=== PATIENT | female | born 1935 | race Caucasian/White ===

== ENCOUNTER 2017-09-24 09:20 | Observation (INO) | payer OTHER ==
--- OUTSIDE RECORDS SUMMARY | 2017-09-24 09:27 | XMS REPORT ---
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 unspecified laterality, unspecified osteoarthritis type Problem Anxiety F41.9 Active Assessment Hypertension, unspecified type I10 Active Assessment Hypercholesterolemia E78.00 Active Problem Hypertension, unspecified type I10 Active Problem Hypercholesterolemia E78.00 Active Medications Medication Code Code Instructions Start End Status Dosage System Date Date Calcium + D + K [facility] 63037095450 750-500-40 Active 1 tablet MG-UNT-MCG with meals Orally Twice a day Mobic [facility] 77463911767 7.5 MG Orally Active 1 tablet Once a day Lisinopril [facility] 70150512400 20 mg Orally Active 1 tablet Twice daily Magnesium Oxide [facility] [address]-93 400 MG Orally Active 1 tablet Once a day (taking prn) Fish Oil [facility] [address]-40 1000 MG Orally Active 1 capsule Once a day (VERIFY DOSE NEXT VISIT; she is unsure of dose) Fosamax [facility] 47974091305 70 MG Orally Active 1 tablet Vitamin E [facility] 86017409211 200 UNIT Orally Active 1 capsule Once a day Metoprolol [facility] 36591430423 25 mg Orally Active 1 tablet Succinate ER Once a day Acidophilus [facility] 46177624684 - Orally Active not Probiotic Blend defined Results No Known Results Summary Purpose eClinicalWorks Submission
--- OUTSIDE RECORDS SUMMARY | 2017-09-24 09:28 | XMS REPORT ---
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 67036356911 400 MG Orally Active 1 tablet Once a day (taking prn) Metoprolol [facility] 69568274879 25 mg Orally Active 1 tablet Succinate ER Once a day Mobic [facility] 72242990823 7.5 MG Orally Active 1 tablet Once a day Acidophilus [facility] 44160099465 - Orally Active not Probiotic Blend defined Calcium + D + K [facility] 63087775009 750-500-40 Active 1 tablet MG-UNT-MCG with meals Orally Twice a day Fish Oil [facility] 05607165785 1000 MG Orally Active 1 capsule Once a day (VERIFY DOSE NEXT VISIT; she is unsure of dose) Lisinopril [facility] 50110355436 20 mg Orally Active 1 tablet Twice daily Fosamax [facility] 53163276502 70 MG Orally Active 1 tablet Vitamin E [facility] 43119334360 200 UNIT Orally Active 1 capsule Once a day Results No Known Results Summary Purpose eClinicalWorks Submission
--- OUTSIDE RECORDS SUMMARY | 2017-09-24 09:28 | XMS REPORT ---
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
[2017-09-24] MEDS ORDERED: NA CHLORIDE 0.9% 250 ML ONE (09:44)
[2017-09-24] MEDS ORDERED: METOPROLOL TARTRATE 5 MG/5 ML INJ IV ONE (09:44)
[2017-09-24] MEDS ORDERED: ONDANSETRON 4 MG/2 ML VIAL ONE (09:44)
[2017-09-24 10:03] LABS: Protime INR 0.93
[2017-09-24 10:06] LABS: Absolute Lymphocytes (CBC) 2.1 K/uL (0.7-4.9); Absolute Monocytes 0.9 K/uL (0.1-1.3); Absolute Neutrophil 2.5 K/uL (1.8-8.0); Basophils % 0.6 % (0-1.3); Eosinophils % 1.5 % (0-4.4); Lymphocytes % 37.9 % (15.3-44.8); MCH 30.4 pg (27.0-35.0); MCV 93.5 fL (80-100); MPV 7.5 fL (7.6-11.3); Monocytes % 15.1 % (3.3-12.3); RBC Red Blood Cell Count 4.38 M/uL (3.86-4.86)
[2017-09-24 10:21] LABS: Magnesium 2.1 mg/dL (1.8-2.4); Potassium 3.6 mmol/L (3.5-5.1)
[2017-09-24 10:23] LABS: Thyroid Stimulating Hormone 4.05 uIU/mL (0.36-3.74)
[2017-09-24] MEDS ORDERED: ASPIRIN 81 MG CHEWABLE TABLET ONE (10:50)
--- NOTE | 2017-09-24 10:56 | RAD REPORT ---
EXAM DESCRIPTION: [place] Single View09/24/2017 10:11 am CLINICAL HISTORY: Hypertension/palpitations COMPARISON: 2009 FINDINGS: The lungs appear clear of acute infiltrate. The heart is mildly enlarged Calcified granuloma is present within the right lung IMPRESSION: No acute abnormalities displayed
--- NOTE | 2017-09-24 11:00 | EDPHYS ---
Physician Documentation [facility] Name: Arelis Bowden Age: 82 yrs Sex: Female : 1935 Arrival Date: 09/24/2017 Time: 09:23 Bed 3 Private MD: Noreen Baker ED Physician Jarod Redman HPI: 09/24 10:42 This 82 yrs old Female presents to ER via Ambulatory with complaints of High rn Blood Pressure. 10:42 This 82 yrs old Female presents to ER via Ambulatory with complaints of High rn Blood Pressure, palpitations. 10:43 The patient presents with a history of heart racing. Context: The symptoms occur at rn rest. Onset: The symptoms/episode began/occurred this morning. Duration: The patient or guardian reports a single episode, that is still ongoing. Severity of symptoms: At their worst the symptoms were moderate in the emergency department the symptoms are unchanged. The patient has experienced similar episodes in the past. Reports no diagnosis of arrhythmia, has had this twice before but went away quickly, began at 0300, constant, no chest pain/sob. Took baby aspirin this AM.. Historical: - Allergies: 09:29 Codeine; hj 09:29 Sulfa (Sulfonamide Antibiotics); hj - Home Meds: 09:29 metoprolol tartrate 25 mg Oral tab 1 tab once daily [Active]; lisinopril 20 mg Oral tab hj 1 tab once daily [Active]; - PMHx: 09:29 Hypertension; hj - PSHx: 09:29 collapsed lung; hj - Immunization history:: Adult Immunizations up to date. - Social history:: Smoking status: Patient/guardian denies using tobacco, Patient/guardian denies using alcohol. - Ebola Screening: : Patient negative for fever greater than or equal to 101.5 degrees Fahrenheit, and additional compatible Ebola Virus Disease symptoms Patient denies exposure to infectious person Patient denies travel to an Ebola-affected area in the 21 days before illness onset. - Family history:: not pertinent. - Hospitalizations: : No recent hospitalization is reported. ROS: 10:43 Constitutional: Negative for fever, chills, and weight loss, Eyes: Negative for injury, rn pain, redness, and discharge, Neck: Negative for injury, pain, and swelling, Cardiovascular: Negative for chest pain, and edema, Respiratory: Negative for shortness of breath, cough, wheezing, and pleuritic chest pain, Abdomen/GI: Negative for abdominal pain, nausea, vomiting, diarrhea, and constipation, MS/Extremity: Negative for injury and deformity, Skin: Negative for injury, rash, and discoloration, Neuro: Negative for headache, weakness, numbness, tingling, and seizure. Exam: 10:43 Constitutional: This is a well developed, well nourished patient who is awake, alert, rn and in no acute distress. Head/Face: Normocephalic, atraumatic. Eyes: Pupils equal round and reactive to light, extra-ocular motions intact. Lids and lashes normal. Conjunctiva and sclera are non-icteric and not injected. Cornea within normal limits. Periorbital areas with no swelling, redness, or edema. Neck: Trachea midline, no thyromegaly or masses palpated, and no cervical lymphadenopathy. Supple, full range of motion without nuchal rigidity, or vertebral point tenderness. No Meningismus. Cardiovascular: tachycardic, irregular, no murmur Respiratory: Lungs have equal breath sounds bilaterally, clear to auscultation and percussion. No rales, rhonchi or wheezes noted. No increased work of breathing, no retractions or nasal flaring. Abdomen/GI: Soft, non-tender, with normal bowel sounds. No distension or tympany. No guarding or rebound. No evidence of tenderness throughout. MS/ Extremity: Pulses equal, no cyanosis. Neurovascular intact. Full, normal range of motion. Equal circumference. Neuro: Awake and alert, GCS 15, oriented to person, place, time, and situation. Cranial nerves II-XII grossly intact. Motor strength 5/5 in all extremities. Sensory grossly intact. Vital Signs: 09:30 BP 159 / 108; Pulse 144; Resp 18; Temp 98.1(O); Pulse Ox 95% on R/A; Weight 73.94 kg; hj Height 5 ft. 6 in. (167.64 cm); Pain 0/10; 09:40 Pulse 114; Resp 16 S; Pulse Ox 97% on R/A; aa5 09:46 BP 151 / 112; Pulse 94; Resp 16 S; Pulse Ox 96% on R/A; aa5 09:51 BP 156 / 98; Pulse 90; Resp 16 S; Pulse Ox 96% on R/A; aa5 10:23 BP 148 / 91; Pulse 80; Resp 14; Pulse Ox 97% on R/A; aa5 11:48 BP 160 / 95; Pulse 98; Resp 16 S; Pulse Ox 97% on R/A; Pain 0/10; aa5 12:15 BP 144 / 96; Pulse 94; Resp 17; Pulse Ox 97% on R/A; jb1 13:34 BP 127 / 78; Pulse 76; Resp 17; Pulse Ox 97% on R/A; jb1 13:36 Temp 98.4(O); jb1 09:30 Body Mass Index 26.31 (73.94 kg, 167.64 cm) hj MDM: 09:31 Patient medically screened. rn 10:43 Data reviewed: vital signs, nurses notes, lab test result(s), EKG, and as a result, I rn will admit patient. Counseling: I had a detailed discussion with the patient and/or guardian regarding: the historical points, exam findings, and any diagnostic results supporting the discharge/admit diagnosis, lab results, radiology results, the need for further work-up and treatment in the hospital. Response to treatment: the patient's symptoms have markedly improved after treatment, and as a result, I will admit patient. Admission orders: after a detailed discussion of the patient's condition and case, the admit orders are written by me. ED course: Pt with persistent Afib, heart rate improved, will admit for afib/rvr and cardiology consult. . 10:59 Differential diagnosis: arrythmia, dehydration, stress disorder. rn 09/24 09:38 Order name: Basic Metabolic Panel; Complete Time: 10:32 09/24 09:38 Order name: CBC with Diff; Complete Time: 10:32 09/24 09:38 Order name: Magnesium; Complete Time: 10:09/24 09:38 Order name: NT PRO-BNP; Complete Time: 10:32 09/24 09:38 Order name: PT-INR; Complete Time: 10:32 09/24 09:38 Order name: Ptt, Activated; Complete Time: 10:32 09/24 09:38 Order name: Troponin (emerg Dept Use Only); Complete Time: 10:09/24 09:38 Order name: XRAY Chest (1 view); Complete Time: 10:57 rn 09/24 09:38 Order name: TSH; Complete Time: 10:32 rn 09/24 09:38 Order name: T4 Free; Complete Time: 10:32 rn 09/24 11:40 Order name: Urine Dipstick--Ancillary (enter results); Complete Time: 11:47 ag 09/24 09:38 Order name: EKG; Complete Time: 09:38 rn 09/24 09:38 Order name: Cardiac monitoring; Complete Time: 09:39 rn 09/24 09:38 Order name: EKG - Nurse/Tech; Complete Time: 09:39 rn 09/24 09:38 Order name: IV Saline Lock; Complete Time: 09:39 rn 09/24 09:38 Order name: Labs collected and sent; Complete Time: 10:04 rn 09/24 09:38 Order name: O2 Per Protocol; Complete Time: 09:39 rn 09/24 09:38 Order name: O2 Sat Monitoring; Complete Time: 09:39 rn 09/24 11:47 Order name: Diet Heart Healthy; Complete Time: 11:48 ss Administered Medications: 09:42 Drug: Metoprolol 5 mg Route: IVP; Site: right antecubital; aa5 09:42 Drug: NS 0.9% 250 ml Route: IV; Rate: 1 bolus; Site: right antecubital; aa5 10:00 Follow up: IV Status: Completed infusion aa5 09:47 Drug: Metoprolol 5 mg Route: IVP; Site: right antecubital; aa5 09:52 Drug: Metoprolol 5 mg Route: IVP; Site: right antecubital; aa5 10:00 Follow up: Response: No adverse reaction; No adverse reaction.HR has decreased. aa5 10:00 Not Given (Physician Discretion): Metoprolol TARTRATE (Lopressor) 50 mg PO once aa5 10:03 Not Given (Patient Refused): Zofran 4 mg IVP once; over 2 minutes aa5 11:07 Not Given (Physician Discretion): Aspirin Chewable Tablet 324 mg PO once; 81 mg tablets ss x 4 11:08 Drug: Aspirin Chewable Tablet 162 mg Route: PO; ss 14:13 Follow up: Response: No adverse reaction ss Disposition: 09/24/17 10:59 Hospitalization ordered by Lionel Scott for Inpatient Admission. Preliminary diagnosis is Paroxysmal atrial fibrillation. - Bed requested for Telemetry/MedSurg (Inpatient). - Status is Inpatient Admission. ss - Condition is Stable. - Problem is new. - Symptoms have improved. UTI on Admission? No Signatures: Dispatcher [employer] EDMS Jarod Redman MD MD rn Calderon, Audri, RN RN aa5 Sharla Mancini RN RN Ladi Menezes Rob Christie RN RN hj Corrections: (The following items were deleted from the chart) 12:58 10:59 Hospitalization Ordered by Lionel Scott MD for Inpatient Admission. Preliminary ag diagnosis is Paroxysmal atrial fibrillation. Bed requested for Telemetry/MedSurg (Inpatient). Status is Inpatient Admission. Condition is Stable. Problem is new. Symptoms have improved. UTI on Admission? No. rn 14:14 12:58 09/24/2017 10:59 Hospitalization Ordered by Lionel Scott MD for Inpatient ss Admission. Preliminary diagnosis is Paroxysmal atrial fibrillation. Bed requested for Telemetry/MedSurg (Inpatient). Status is Inpatient Admission. Condition is Stable. Problem is new. Symptoms have improved. UTI on Admission? No. ag
--- NOTE | 2017-09-24 11:00 | ER ---
Nurse's Notes [facility] Name: Arelis Bowden Age: 82 yrs Sex: Female : 1935 Arrival Date: 09/24/2017 Time: 09:23 Bed 3 Private MD: Noreen Baker Diagnosis: Paroxysmal atrial fibrillation Presentation: 09/24 09:26 Presenting complaint: Patient states: i woke up about 3:30 am today, i could feel my hj heart fluttering, took aspirin, woke up BP was- 146/101; took my BP meds; i can still feel my heart is fast; reports weakness; denies chest pain, nausea and vomiting;. Transition of care: patient was not received from another setting of care. Onset of symptoms was September 24, 2017. Risk Assessment: Do you want to hurt yourself or someone else? Patient reports no desire to harm self or others. Initial Sepsis Screen: Does the patient meet any 2 criteria? No. Patient's initial sepsis screen is negative. Does the patient have a suspected source of infection? No. Patient's initial sepsis screen is negative. Care prior to arrival: None. 09:26 Method Of Arrival: Ambulatory 09:26 Acuity: DURGA 3 hj Triage Assessment: 09:30 General: Appears in no apparent distress. uncomfortable, Behavior is calm, cooperative, hj appropriate for age. Pain: Denies pain. Historical: - Allergies: 09:29 Codeine; hj 09:29 Sulfa (Sulfonamide Antibiotics); hj - Home Meds: 09:29 metoprolol tartrate 25 mg Oral tab 1 tab once daily [Active]; lisinopril 20 mg Oral tab hj 1 tab once daily [Active]; - PMHx: 09:29 Hypertension; hj - PSHx: 09:29 collapsed lung; hj - Immunization history:: Adult Immunizations up to date. - Social history:: Smoking status: Patient/guardian denies using tobacco, Patient/guardian denies using alcohol. - Ebola Screening: : Patient negative for fever greater than or equal to 101.5 degrees Fahrenheit, and additional compatible Ebola Virus Disease symptoms Patient denies exposure to infectious person Patient denies travel to an Ebola-affected area in the 21 days before illness onset. - Family history:: not pertinent. - Hospitalizations: : No recent hospitalization is reported. Screenin:30 Abuse screen: Denies threats or abuse. Denies injuries from another. Nutritional hj screening: No deficits noted. Tuberculosis screening: No symptoms or risk factors identified. Fall Risk None identified. Assessment: 09:35 General: Appears comfortable, Behavior is calm, cooperative. Pain: Denies pain. Neuro: aa5 Level of Consciousness is awake, alert, obeys commands, Oriented to person, place, time, situation. Cardiovascular: Reports palpitations, Heart tones S1 S2 present Rhythm is atrial fibrillation with rapid ventricular response. Respiratory: Airway is patent Respiratory effort is even, unlabored, Respiratory pattern is regular, symmetrical, Breath sounds are clear bilaterally. GI: Abdomen is flat, non-distended, Bowel sounds present X 4 quads. Abd is soft and non tender X 4 quads. Patient currently denies nausea, vomiting. : No signs and/or symptoms were reported regarding the genitourinary system. EENT: No signs and/or symptoms were reported regarding the EENT system. Derm: Skin is pink, warm \\T\\ dry. Musculoskeletal: Range of motion: intact in all extremities. 09:50 Reassessment: Pt reports taking 25 mg Metoprolol [employer] CARRIER ASSISTANT, pt was notified of need to aa5 administer additional 25 mg Metoprolol per MD, pt took her own tab of 25 mg Metoprolol at 0950. . 10:00 Reassessment: Patient and/or family updated on plan of care and expected duration. Pain aa5 level reassessed. Patient is alert, oriented x 3, equal unlabored respirations, skin warm/dry/pink. Patient denies pain at this time. Patient states feeling better. Pt reports palpitations have improved. Pt states "I can still feel my heart beating fast but not as bad" . 11:07 Reassessment: Pt reports taking ASA 81mg x 2 [employer] CARRIER ASSISTANT, notified. . ss 11:08 Reassessment: Patient and/or family updated on plan of care and expected duration. Pain aa5 level reassessed. Patient is alert, oriented x 3, equal unlabored respirations, skin warm/dry/pink. Patient denies pain at this time. 11:48 Reassessment: Patient and/or family updated on plan of care and expected duration. Pain aa5 level reassessed. Patient is alert, oriented x 3, equal unlabored respirations, skin warm/dry/pink. Patient denies pain at this time. Pt notified of wait time for room assignment . 12:53 Reassessment: awaiting room assignment to be given at this time. Pt eating diet tray. ss Call light within reach. 14:05 Reassessment: Report given to DAFNE Mcallister. Vital Signs: 09:30 BP 159 / 108; Pulse 144; Resp 18; Temp 98.1(O); Pulse Ox 95% on R/A; Weight 73.94 kg; hj Height 5 ft. 6 in. (167.64 cm); Pain 0/10; 09:40 Pulse 114; Resp 16 S; Pulse Ox 97% on R/A; aa5 09:46 BP 151 / 112; Pulse 94; Resp 16 S; Pulse Ox 96% on R/A; aa5 09:51 BP 156 / 98; Pulse 90; Resp 16 S; Pulse Ox 96% on R/A; aa5 10:23 BP 148 / 91; Pulse 80; Resp 14; Pulse Ox 97% on R/A; aa5 11:48 BP 160 / 95; Pulse 98; Resp 16 S; Pulse Ox 97% on R/A; Pain 0/10; aa5 12:15 BP 144 / 96; Pulse 94; Resp 17; Pulse Ox 97% on R/A; jb1 13:34 BP 127 / 78; Pulse 76; Resp 17; Pulse Ox 97% on R/A; jb1 13:36 Temp 98.4(O); jb1 09:30 Body Mass Index 26.31 (73.94 kg, 167.64 cm) hj ED Course: 09:23 Patient arrived in ED. mr 09:23 Noreen Baker MD is Private Physician. mr 09:28 Triage completed. hj 09:30 Arm band placed on left wrist. hj 09:30 Patient has correct armband on for positive identification. Placed in gown. Bed in low hj position. Call light in reach. Side rails up X 1. Adult w/ patient. 09:31 Jarod Redman MD is Attending Physician. rn 09:38 Ana Maria Meier RN is Primary Nurse. aa5 09:40 Inserted saline lock: 20 gauge in right antecubital area, using aseptic technique. aa5 Blood collected. IV inserted by Jonatan Ta corporate technical recruiter. 09:53 Initial lab(s) drawn, by me, sent to lab. EKG done, by assistive technology trainer. jb1 10:08 EKG done, by assistive technology trainer. reviewed by Jarod Redman MD. tc 10:10 X-ray completed. Portable x-ray completed in exam room. Patient tolerated procedure la2 well. 10:10 XRAY Chest (1 view) In Process Unspecified. EDMS 10:59 Lionel Scott MD is Hospitalizing Provider. rn 11:15 Urine collected: clean catch specimen, clear, zoltan colored. jb1 14:12 No provider procedures requiring assistance completed. Patient admitted, IV remains in ss place. Administered Medications: 09:42 Drug: Metoprolol 5 mg Route: IVP; Site: right antecubital; aa5 09:42 Drug: NS 0.9% 250 ml Route: IV; Rate: 1 bolus; Site: right antecubital; aa5 10:00 Follow up: IV Status: Completed infusion aa5 09:47 Drug: Metoprolol 5 mg Route: IVP; Site: right antecubital; aa5 09:52 Drug: Metoprolol 5 mg Route: IVP; Site: right antecubital; aa5 10:00 Follow up: Response: No adverse reaction; No adverse reaction.HR has decreased. aa5 10:00 Not Given (Physician Discretion): Metoprolol TARTRATE (Lopressor) 50 mg PO once aa5 10:03 Not Given (Patient Refused): Zofran 4 mg IVP once; over 2 minutes aa5 11:07 Not Given (Physician Discretion): Aspirin Chewable Tablet 324 mg PO once; 81 mg tablets ss x 4 11:08 Drug: Aspirin Chewable Tablet 162 mg Route: PO; ss 14:13 Follow up: Response: No adverse reaction ss Outcome: 10:59 Decision to Hospitalize by Provider. rn 14:12 Admitted to Tele accompanied by tech, family with patient, via wheelchair, room 419, on ss monitor, Report called to DAFNE Mcallister 14:12 Condition: improved 14:12 Discharge instructions given to patient, family, Instructed on the need for admit, Demonstrated understanding of instructions. 14:14 Patient left the ED. ss Signatures: Dispatcher [employer] EDMS Jonatan Ta jb1 Serena Mccoy Roman, MD MD rn Calderon, Audri, RN RN aa5 Sharla Mancini RN RN Salma Dexter, ticket agent EKG Ttc Rob Christie RN RN Franchesca Mcmillan la2 Corrections: (The following items were deleted from the chart) 09:32 09:30 BP 159 / 108; Pulse 135bpm; Resp 18bpm; Pulse Ox 95% RA; Temp 98.1F Oral; 73.94 hj kg; Height 5 ft. 6 in.; BMI: 26.3; Pain 0/10; hj 10:05 09:53 Inserted saline lock: 20 gauge in right antecubital area, using aseptic aa5 technique. Blood collected. jb1
[2017-09-24] MEDS ORDERED: MEPERIDINE HCL 25 MG/0.5 ML ONE (11:10)
[2017-09-24 11:44] LABS: Urine Blood TRACE (NEG); Urine Glucose NEGATIVE (NEG); Urine Protein NEGATIVE (NEG); Urine Specific Gravity 1.015 (1.005-1.030)
[2017-09-24] MEDS ORDERED: ONDANSETRON 4 MG/2 ML VIAL IV PRN (11:50)
[2017-09-24] MEDS ORDERED: ACETAMINOPHEN 500 MG TAB PO PRN (11:50)
[2017-09-24] MEDS ORDERED: METOPROLOL TARTRATE 5 MG/5 ML INJ IV PRN (11:50)
--- NOTE | 2017-09-24 12:07 | EKG ---
Test Date: 2017-09-24 Test Time: 09:43:15 Hand Stonecutter: JOSÉ MIGUEL MEASUREMENT RESULTS: Intervals: Rate: 116 ND: QRSD: 84 QT: 334 QTc: 464 [place]: P: ND: QRS: 31 T: 238 INTERPRETIVE STATEMENTS: Atrial fibrillation with rapid ventricular response ST depression, consider subendocardial injury Nonspecific T wave abnormality Abnormal ECG Compared to ECG 02/28/2010 05:51:03 ST (T wave) deviation now present Sinus rhythm no longer present Atrial premature complex(es) no longer present T-wave abnormality still present Electronically Signed On 09-24-17 12:07:00 CDT by Adan Ervin
[2017-09-24] MEDS ORDERED: ENOXAPARIN 80 MG/0.8 ML SQ ONE (15:30)
[2017-09-24 16:54] VITALS: BMI 26.3
[2017-09-24] MEDS: ENOXAPARIN 80 MG/0.8 ML SQ SCH (19:57)
[2017-09-24] MEDS: LISINOPRIL 20 MG TAB PO SCH (19:58)
--- NOTE | 2017-09-24 23:37 | EKG ---
Test Date: 2017-09-24 Test Time: 20:30:49 Blankmaker: NEGRITO Hussein MEASUREMENT RESULTS: Intervals: Rate: 65 MN: 224 QRSD: 96 QT: 418 QTc: 434 [place]: P: 66 MN: 224 QRS: 32 T: 34 INTERPRETIVE STATEMENTS: Sinus rhythm with 1st degree AV block Otherwise normal ECG Compared to ECG 09/24/2017 09:43:15 First degree AV block now present Atrial fibrillation no longer present ST (T wave) deviation no longer present T-wave abnormality no longer present Electronically Signed On 09-24-17 23:36:58 CDT by Adan Ervin
--- NOTE | 2017-09-25 02:04 | HP ---
Date of Admission: 09/24/2017 Primary Care Physician: Dr. Baker. Culinary Instructor: Dr. Ervin, Cardiology. Code Status: Full. No medical power of needle straightener or living will. Chief Complaint: Palpitations. History Of Present Illness: The patient is an 82-year-old female with past medical history of hypertension, who was in her usual state of health until day of admission when the patient woke up around 03:30 with feelings of palpitation. This occurred after she went to the bathroom. The patient took an aspirin and was able to fall back asleep in a recliner, woke up around 07:30 , found to have her blood pressure elevated and around 146/101 and again had the fluttering sensation. Denied any chest pain, diaphoresis, nausea, vomiting or shortness of breath. The patient took her metoprolol for her blood pressure and felt slightly better; however, the palpitations did not resolve. Therefore , the patient came into the ER for further evaluation. The patient states that she has had similar episodes of palpitation in the past approximately a year ago. The patient's vital signs initially showed somewhat elevated blood pressure 159/108, rate in the 140s. The patient was given IV metoprolol, which improved her rate to the 100s. Her workup revealed elevated BNP. TSH was high at 4.05. Otherwise, troponin was negative. No electrolyte abnormalities. The patient was then referred for admission for atrial fibrillation with RVR. When seen in the ER, she was awake, alert, oriented x3, not in any acute distress, stated that she feels significantly better. Past Medical History: Hypertension. Past Surgical History: None. Allergies: TO CODEINE AND SULFA. Medications: List reviewed. Family History: No history of premature coronary artery disease in the family. Review of Systems: An 11-point system reviewed, negative except as per HPI. Social History: The patient smoked in the remote past. Has not smoked for over 30 years or longer. No alcohol. No illicit drug use. The patient has good social support. Physical Examination: Vital Signs: Temperature 98.1, heart rate 144, blood pressure 159/108, respirations 18, O2 95% on room air. General: Awake, alert, oriented x3. Some mild distress. Elderly female. HEENT: Normocephalic, atraumatic. PERRLA. EOMI. Moist mucous membranes. Oropharynx is clear. Normal dentition. Conjunctiva anicteric. Neck: Supple. No JVD. Trachea midline. CV: S1, S2. Irregularly irregular. Peripheral pulses present. No murmurs. Gastrointestinal: Abdomen is soft, nontender, nondistended. Positive bowel sounds. No guarding or rigidity. Respiratory: Clear to auscultation bilaterally. No wheezing. No stridor. No use of accessory muscles. Extremities: No clubbing, cyanosis or edema. No calf tenderness. Neurologic: Cranial nerves 2 through 12 intact grossly. No focal neurological deficit. Speech is normal. Sensation intact to light touch. Skin: No rashes. Normal skin turgor. Psych: Mood is okay. Affect is full. Insight and judgment are good. Laboratory Data: WBC 5.6, H and H 13.3 and 41, platelets 224. INR 0.93. Sodium 140, potassium 3.6, chloride 105, CO2 28, BUN 18, creatinine 0.9, glucose 111, calcium 9.2, magnesium 2.1. Troponin 0.03. BNP 835. TSH 4.05, free T4 1.19. UA negative. Chest x-ray shows no acute abnormalities displayed, personally reviewed. EKG shows atrial fibrillation with RVR, rate of 116, ST depression, nonspecific T- wave abnormality. Assessment/plan: An 82-year-old female with, 1. New onset Atrial fibrillation with rapid ventricular response, unclear etiology, likely paroxysmal. The patient has had similar symptoms before. The patient on aspirin alone at home. We will anticoagulate with Lovenox. Cardiology consultation. We will obtain echocardiogram. 2. Essential hypertension, uncontrolled, likely secondary to above. We will resume home medications and monitor closely. 3. Gastrointestinal, deep venous thrombosis prophylaxis with PPI and Lovenox. /ZEB Voice ID: [id number] [facility]
[2017-09-25 03:54] LABS: Absolute Lymphocytes (CBC) 2.3 K/uL (0.7-4.9); Absolute Monocytes 0.9 K/uL (0.1-1.3); Absolute Neutrophil 2.3 K/uL (1.8-8.0); Basophils % 0.4 % (0-1.3); Eosinophils % 1.9 % (0-4.4); Hematocrit 33.5 % (36.0-45.0); Lymphocytes % 40.5 % (15.3-44.8); MCH 31.4 pg (27.0-35.0); MCV 93.4 fL (80-100); MPV 7.5 fL (7.6-11.3); Monocytes % 16.3 % (3.3-12.3); RBC Red Blood Cell Count 3.59 M/uL (3.86-4.86)
[2017-09-25 04:08] LABS: Albumin 3.3 g/dL (3.4-5.0); Bilirubin Total 0.4 mg/dL (0.2-1.0); Magnesium 2.2 mg/dL (1.8-2.4); Potassium 3.7 mmol/L (3.5-5.1); Protein, Total 6.6 g/dL (6.4-8.2)
--- NOTE | 2017-09-25 07:13 | ECHO ---
HEIGHT: 5 ft 6 in WEIGHT: 163 lb 0 oz DATE OF STUDY: 09/24/[address]: Lionel Scott MD 2-DIMENSIONAL: YES M.MODE: YES DOPPLER: YES COLOR FLOW: YES TDS: PORTABLE: DEFINITY: BUBBLE STUDY: DIAGNOSIS: ATRIAL FIBRILLATION CARDIAC HISTORY: CATHERIZATION: NO SURGERY: NO PROSTHETIC VALVE: NO PACEMAKER: NO MEASUREMENTS (cm) DIASTOLIC (NORMALS) SYSTOLIC (NORMALS) IVSd 1.1 (0.6-1.2) LA Diam 3.5 (1.9-4.0) LVEF 75% LVIDd 4.2 (3.5-5.7) LVIDs 2.4 (2.0-3.5) %FS 43% LVPWd 1.2 (0.6-1.2) Ao Diam 3.3 (2.0-3.7) 2 DIMENSIONAL ASSESSMENT: RIGHT ATRIUM: NORMAL LEFT ATRIUM: NORMAL RIGHT VENTRICLE: NORMAL LEFT VENTRICLE: NORMAL TRICUSPID VALVE: NORMAL MITRAL VALVE: NORMAL PULMONIC VALVE: NORMAL AORTIC VALVE: NORMAL PERICARDIAL EFFUSION: NONE AORTIC ROOT: NORMAL LEFT VENTRICULAR WALL MOTION: NORMAL DOPPLER/COLOR FLOW: MILD TRICUSPID REGURGITATION. NORMAL RIGHT VENTRICULAR SYSTOLIC PRESSURE. COMMENTS: NORMAL LEFT VENTRICULAR EJECTION FRACTION, OTHERWISE NORMAL 2-DIMENSIONAL ECHOCARDIOGRAM. MILD TRICUSPID REGURGITATION. SINUS RHTYHM. TECHNOLOGIST: PHUC BOONE
[2017-09-25 07:59] VITALS: BP 179/90; TEMP 97
[2017-09-25] MEDS: LISINOPRIL 20 MG TAB PO SCH (08:44)
[2017-09-25] MEDS: ENOXAPARIN 80 MG/0.8 ML SQ SCH (08:44)
[2017-09-25] MEDS ORDERED: LACTOBACILLUS/ACIDOPHILUS TAB PO SCH (09:00)
[2017-09-25] MEDS ORDERED: METOPROLOL XL 25 MG TAB PO SCH (09:00)
[2017-09-25] MEDS ORDERED: [UNRECOGNIZED DRUG - OTHER] PO SCH (09:00)
[2017-09-25 10:37] VITALS: O2SAT 97
--- NOTE | 2017-09-26 01:34 | DS ---
Date of Discharge: 09/25/2017 Consultants: Dr. Ervin and Dr. Oreilly with Cardiology. Admitting Diagnoses: 1.New onset atrial fibrillation. 2.Essential hypertension. Discharge Diagnoses: 1.New onset atrial fibrillation with rapid ventricular response, now back in sinus rhythm. 2.Essential hypertension. Hospital Course: The patient is an 82-year-old functional female who comes into the hospital with pa lpitations. The patient was found to have atrial fibrillation with RVR at a rate of 140. The patien t has never been diagnosed with Afib previously. She did state however that she has had previous epi sodes of palpitations and likely has paroxysmal atrial fibrillation. The patient does take aspirin a t home along with metoprolol. The patient was given IV Lopressor, her rate improved and she converte d back to sinus rhythm. Overall, her workup did not reveal any electrolyte abnormalities. Her TSH w as high at 4.05. The patient will need to follow up with PCP in a couple of weeks to initiate Synthr oid therapy and to monitor TSH in 6 to 8 weeks from that point. She will not be started on Synthroid while in the hospital setting, which may exacerbate her atrial fibrillation. The patient was seen b y residential program director, Dr. Oreilly. Echocardiogram was done, which showed normal ejection fraction 75%. Th e patient is doing better. Her palpitations resolved. She did not have any chest pain or shortness of breath. She was not on any supplemental oxygen. Her troponin level was negative. The patient wa s then cleared for discharge from Cardiology standpoint. The patient was sent home in a stable condi tion. Activity: As tolerated. Medications: As per medication reconciliation list. Followup: Follow up with PCP in 2 to 3 days. Follow up with residential program director, Dr. Oreilly in 2 weeks. Return to ER for worsening condition. The patient recommended to have stress test as an outpatient. Diet: Heart healthy. Activity: As tolerated. The patient was encouraged to start Eliquis; however, the patient refused, stating that she does not like to take medications that she is already 82 years old and she understands that she has a risk for stroke due to atrial fibrillation that is paroxysmal; however, she does not wish to take oral antico agulation at this time. She does take aspirin at home, which will be continued at 325 mg dose. The patient stated that she would decide on starting Eliquis or other newer agents after the stress test and further discussion with her family and residential program director. The patient understands the risk of stroke and is okay with waiting. The patient was then discharged home. Physical Examination: General: Awake, alert, oriented, no acute distress. CV: S1, S2. No murmurs. Regular rate and rhythm. Peripheral pulses present. Respiratory: Moving air well bilaterally. Abdomen: Soft, nontender, nondistended. Positive bowel sounds. Extremities: No clubbing, cyanosis, or edema. Neurologic: Nonfocal. SA/MODL Voice ID: [id number] Report ID: [id number]
--- NOTE | 2017-09-26 08:26 | CON ---
Date of Consultation: 09/25/2017 Reason For Consultation: Atrial fibrillation. History Of Present Illness: Ms. Bowden is an 82-year-old woman with history of hypertension only, ne karan had atrial fibrillation before, came into the hospital with palpitation, was found to have atrial fibrillation with rapid ventricular response. Received IV beta-blockers and digoxin in the emergenc y room and was placed on metoprolol p.o. and she converted to sinus rhythm. Denied any chest pain, n ausea, vomiting, diaphoresis, PND, orthopnea, pedal edema, or syncope. She cannot remember having at rial fibrillation in the past. This was not exertional. Denies excessive use of coffee or carbohydr ates. Denies alcohol use. Denies any previous cardiac history. Past Medical History: Hypertension. Medications: Include metoprolol and lisinopril. Review of Systems: Negative. Social History: Negative for tobacco, drugs and alcohol. Allergies: CODEINE AND SULFA. Family History: Negative for heart disease. Physical Examination: Vital Signs: Stable. She was afebrile. HEENT: Negative. Neck: Supple with no bruit. Chest: Clear to auscultation and percussion. Cardiac Exam: Revealed a regular rhythm and rate without any murmurs, gallops or rubs. Abdomen: Benign. Extremities: Revealed no clubbing, cyanosis, or edema. Diagnostic Data: Her EKG initially showed rapid atrial fibrillation. Chest x-ray was normal. BNP w as 835. TSH with normal T4. Impression And Plan: Paroxysmal atrial fibrillation, new onset that has resolved. I suggest increas ing the metoprolol dose when she goes home to 50 b.i.d. I would consider anticoagulation Xarelto and Eliquis. The patient about that. I think she needs to have outpatient stress test and I will make arrangements for that. , she can go home today. Echocardiogram is p ending and we will see what that shows. She may need to have a low Synthroid dose because of her edgardo vated TSH, but I will leave that up to Dr. Scott and her primary care physician. CRIS/ZEB Voice ID: [id number] Report ID: [id number]
== END 2017-09-25 11:45 | disposition home or self-care (01) ==
LOC: ER 09:20 → INTOOBSV 11:04 → ERHOLD 11:04 → 4TH 14:07
PROVIDERS: ADMIT Family Medicine; ATTEND Family Medicine
DX: I48.0 Paroxysmal atrial fibrillation (principal); I10 Essential (primary) hypertension; Z88.2 Allergy status to sulfonamides
CPT/HCPCS: 36415; 71045; 80048; 80053; 81003; 83735 ×2; 83880; 84439; 84443; 84484; 85025 ×2; 85610; 85730; 93005 ×2; 93306; 94760 ×3; 96361; 96374; 99285; G0378 ×2; J1650 ×2; 96365; 96375; J2175; J2405

== ENCOUNTER 2018-02-07 08:18 | Emergency (ER) | payer OTHER ==
--- OUTSIDE RECORDS SUMMARY | 2018-02-07 08:20 | XMS REPORT ---
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 Active unspecified laterality, unspecified osteoarthritis type Problem Anxiety F41.9 Active Problem Atrial fibrillation, unspecified I48.91 Active type Problem Hypertension, unspecified type I10 Active Problem Osteoporosis M81.0 Active Problem Hypercholesterolemia E78.00 Active Medications Medication Code Code Instructions Start End Status Dosage System Date Date Fish Oil [facility] [address]-24 1000 MG Orally Active 1 capsule Once a day (OTC) Lisinopril [facility] 24701229194 20 mg Orally Active 1 tablet Twice daily Vitamin C [facility] [address]31 Orally Once a Active 1 tablet day Vitamin E [facility] 81555282486 200 UNIT Orally Active 1 capsule Once a day Magnesium Oxide [facility] 42711035375 400 MG Orally Active 1 tablet Once a day (taking prn) Calcium + D + K [facility] 83701245693 750-500-40 Active 1 tablet MG-UNT-MCG with meals Orally Twice a day Fosamax [facility] 60949103052 70 MG Orally Active 1 tablet Mobic [facility] 83723689534 7.5 MG Orally Active 1 tablet Once a day Aspirin [facility] 78804259175 81 MG Orally Active 1 tablet Once daily (OTC) Acidophilus [facility] [address] - Orally Once Active 1 capsule Probiotic Blend daily (Probotics --OTC) Metoprolol [facility] 39558905862 25 mg Orally Active 1 tablet Succinate ER Once a day Results No Known Results Summary Purpose eClinicalWorks Submission
--- OUTSIDE RECORDS SUMMARY | 2018-02-07 08:20 | XMS REPORT ---
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 unspecified laterality, unspecified osteoarthritis type Problem Peripheral edema R60.9 Active Problem Hypercholesterolemia E78.00 Active Problem Hypertension, unspecified type I10 Active Problem Anxiety F41.9 Active Problem Osteoporosis M81.0 Active Medications Medication Code Code Instructions Start End Status Dosage System Date Date Vitamin C [facility] [address] Orally Once a Active 1 tablet day Magnesium Oxide [facility] 28513057891 400 MG Orally Active 1 tablet Once a day (taking prn) Fish Oil [facility] 80711335701 1000 MG Orally Active 1 capsule Once a day (OTC) Vitamin E [facility] 48132170807 200 UNIT Orally Active 1 capsule Once a day Calcium + D + K [facility] 22547070218 750-500-40 Active 1 tablet MG-UNT-MCG with meals Orally Twice a day Lisinopril [facility] 55186854515 20 mg Orally Inactive 1 tablet Twice daily Fosamax [facility] 04054061176 70 MG Orally Active 1 tablet Aspirin [facility] 57670391328 81 MG Orally Active 1 tablet Once daily (OTC) Mobic [facility] 64989327537 7.5 MG Orally Active 1 tablet Once a day Acidophilus [facility] 36719-397[address] - Orally Once Active 1 capsule Probiotic Blend daily (Probotics --OTC) Metoprolol [facility] 94353318052 50 MG Orally Active 1 tablet Succinate ER Once a day Results No Known Results Summary Purpose eClinicalWorks Submission
--- OUTSIDE RECORDS SUMMARY | 2018-02-07 08:20 | XMS REPORT ---
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 unspecified laterality, unspecified osteoarthritis type Problem Anxiety F41.9 Active Problem Atrial fibrillation, unspecified I48.91 Active type Problem Hypertension, unspecified type I10 Active Problem Osteoporosis M81.0 Active Problem Hypercholesterolemia E78.00 Active Medications Medication Code Code Instructions Start End Status Dosage System Date Date Acidophilus [facility] 45107847679 - Orally Active not Probiotic Blend defined Metoprolol [facility] 07757932685 25 mg Orally Active 1 tablet Succinate ER Once a day Fish Oil [facility] 06167266270 1000 MG Orally Active 1 capsule Once a day (VERIFY DOSE NEXT VISIT; she is unsure of dose) Fosamax [facility] 21095268977 70 MG Orally Active 1 tablet Mobic [facility] 45702555959 7.5 MG Orally Active 1 tablet Once a day Calcium + D + K [facility] 10773369906 750-500-40 Active 1 tablet MG-UNT-MCG with meals Orally Twice a day Magnesium Oxide [facility] 18035844542 400 MG Orally Active 1 tablet Once a day (taking prn) Lisinopril [facility] 90936690101 20 mg Orally Active 1 tablet Twice daily Vitamin E [place] 05994454304 200 UNIT Orally Active 1 capsule Once a day Results No Known Results Summary Purpose eClinicalWorks Submission
--- OUTSIDE RECORDS SUMMARY | 2018-02-07 08:20 | XMS REPORT ---
[...] Status Dosage System Date Date Magnesium Oxide [facility] 59615312745 400 MG Orally Active 1 tablet Once a day (taking prn) Metoprolol [facility] 92861009402 25 mg Orally Active 1 tablet Succinate ER Once a day Mobic [facility] 48227896014 7.5 MG Orally Active 1 tablet Once a day Acidophilus [facility] 60790378463 - Orally Active not Probiotic Blend defined Calcium + D + K [facility] 79534439082 750-500-40 Active 1 tablet MG-UNT-MCG with meals Orally Twice a day Fish Oil [facility] 32494474616 1000 MG Orally Active 1 capsule Once a day (VERIFY DOSE NEXT VISIT; she is unsure of dose) Lisinopril [facility] 07004561120 20 mg Orally Active 1 tablet Twice daily Fosamax [facility] 64612820606 70 MG Orally Active 1 tablet Vitamin E [facility] 73150664201 200 UNIT Orally Active 1 capsule Once a day Results No Known Results Summary Purpose eClinicalWorks Submission
--- OUTSIDE RECORDS SUMMARY | 2018-02-07 08:20 | XMS REPORT ---
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
--- OUTSIDE RECORDS SUMMARY | 2018-02-07 08:20 | XMS REPORT ---
[...] Date Date Calcium + D + K [facility] 20337250817 750-500-40 Active 1 tablet MG-UNT-MCG with meals Orally Twice a day Mobic [facility] 59833700661 7.5 MG Orally Active 1 tablet Once a day Lisinopril [facility] 71786514992 20 mg Orally Active 1 tablet Twice daily Magnesium Oxide [facility] [address]-66 400 MG Orally Active 1 tablet Once a day (taking prn) Fish Oil [facility] [address]-20 1000 MG Orally Active 1 capsule Once a day (VERIFY DOSE NEXT VISIT; she is unsure of dose) Fosamax [facility] 06555188843 70 MG Orally Active 1 tablet Vitamin E [facility] 09841000328 200 UNIT Orally Active 1 capsule Once a day Metoprolol [facility] 03883522548 25 mg Orally Active 1 tablet Succinate ER Once a day Acidophilus [facility] 22239984952 - Orally Active not Probiotic Blend defined Results No Known Results Summary Purpose eClinicalWorks Submission
[2018-02-07] MEDS ORDERED: METOPROLOL TARTRATE 5 MG/5 ML INJ IV ONE ×2 (08:59→11:28)
[2018-02-07 09:07] LABS: Absolute Lymphocytes (CBC) 1.8 K/uL (0.7-4.9); Absolute Monocytes 0.8 K/uL (0.1-1.3); Absolute Neutrophil 3.1 K/uL (1.8-8.0); Basophils % 0.7 % (0-1.3); Eosinophils % 1.4 % (0-4.4); Hematocrit 38.3 % (36.0-45.0); Lymphocytes % 31.4 % (15.3-44.8); MCH 31.1 pg (27.0-35.0); MCV 93.4 fL (80-100); MPV 7.8 fL (7.6-11.3); Monocytes % 13.4 % (3.3-12.3)
[2018-02-07 09:10] LABS: Protime INR 0.98
--- NOTE | 2018-02-07 09:28 | RAD REPORT ---
EXAM DESCRIPTION: CT - Ct Stroke Brain Wo Cont - 02/07/2018 9:04 am CLINICAL HISTORY: Dizziness, acute onset neurologic symptoms, weakness CLINICAL HISTORY: None. TECHNIQUE: Axial 5 millimeter thick images of the head were obtained without IV contrast. All CT scans are performed using dose optimization technique as appropriate and may include automated exposure control or mA/KV adjustment according to patient size. FINDINGS: No intracranial hemorrhage, mass, or cerebral edema. No acute infarction identifiable. Mod erate severity atrophy and chronic ischemic change present. 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 There are old infarction changes in each thalamus. Ventricles are in proportion to volume loss. Visualized portions of the mastoid air cells, paranasal sinuses, and orbits are unremarkable. Findings telephoned to referring physician 9:21 a.m.. IMPRESSION: No CT evidence of acute intracranial process. Prominent atrophy, chronic ischemic change and old infarction. Chronic ischemic change can mask nonhe morrhagic acute CVA.
--- NOTE | 2018-02-07 09:32 | RAD REPORT ---
EXAM DESCRIPTION: RAD - Chest Single View - 02/07/2018 9:11 am CLINICAL HISTORY: Dizziness, confusion COMPARISON: September 24 TECHNIQUE: AP portable chest image was obtained 0857 hours . FINDINGS: Chronic interstitial lung disease is evident. Right lung base markings are not clearly dif ferent from comparison. Retrocardiac left base assessment is limited. Findings are not substantially different from the comparison study. Heart size is upper normal and stable. No vascular engorgement. Patient has numerous mediastinal and hilar calcifications as well as a right lung field granuloma. No measurable pleural effusion and no pneumothorax. No acute bony abnormality seen. No acute aortic fin dings suspected. IMPRESSION: No acute cardiopulmonary process. Patient has chronic interstitial lung disease and retrocardiac left base assessment is limited. Chest findings are not clearly different from September.
[2018-02-07 10:01] LABS: Potassium 3.7 mmol/L (3.5-5.1)
[2018-02-07] MEDS ORDERED: ALTEPLASE 100 ML IV ONE (11:08)
[2018-02-07] MEDS ORDERED: ASPIRIN 81 MG CHEWABLE TABLET ONE (11:08)
--- NOTE | 2018-02-07 11:09 | ER ---
Nurse's Notes [facility] Name: Arelis Bowden Age: 82 yrs Sex: Female : 1935 Arrival Date: 02/07/2018 Time: 08:21 Bed 4 Private MD: Noreen Baker Diagnosis: CVA - Non-hemorhagic Presentation: 02/07 08:31 Presenting complaint: Patient states: got up this morning, started moving around, iw brushed her teeth, combed hair, then got very dizzy, and was confused, could not remember how to unlock the door, made an unintentional phone call to her daughter in [place], BP was high at home 170/110, pt states she now has blurry vision in right eye since about 0750. 08:35 Method Of Arrival: Wheelchair iw 08:43 Note pt denies weakness, states dizziness has mostly resolved, just feels like her mind iw isn't quite right, NIHSS=[address] Han. 08:43 No acute neurological deficit is noted. Pre-hospital glucose is not applicable to this iw patient. 08:46 Initial Sepsis Screen: Does the patient meet any 2 criteria? No. Patient's initial sv sepsis screen is negative. Does the patient have a suspected source of infection? No. Patient's initial sepsis screen is negative. 08:47 Transition of care: patient was not received from another setting of care. Onset of iw symptoms was February 07, 2018. Risk Assessment: Do you want to hurt yourself or someone else? Patient reports no desire to harm self or others. Care prior to arrival: None. 08:47 Acuity: DURGA 2 iw Triage Assessment: 08:31 Neuro: Reports dizziness. tw2 08:43 The onset of the patients symptoms was February 07, 2018 at 07:50. General: Appears in sv no apparent distress. comfortable, well developed, Behavior is calm, cooperative, appropriate for age. Pain: Denies pain. EENT: No signs and/or symptoms were reported regarding the EENT system. Denies blurred vision difficulty swallowing. Neuro: Level of Consciousness is awake, alert, obeys commands, Oriented to person, place, time, situation, Corporate Communications Intern are equal bilaterally Moves all extremities. Full function Speech is normal, Facial symmetry appears normal, Facial symmetry: tongue is midline, Pupils are PERRLA, Denies blurred vision dizziness, difficulty swallowing, numbness headache photophobia diplopia. Respiratory: Airway is patent Respiratory effort is even, unlabored, Respiratory pattern is regular, symmetrical. Derm: Skin is pink, warm \T\ dry. Musculoskeletal: No signs and/or symptoms reported regarding the musculoskeletal system. Stroke Activation: Symtpom onset >3 hours and < 6 hours Physician: Stroke Attending; Name: ; Notified At: ; Arrived At: Physician: Chief Stroke Resident; Name: ; Notified At: ; Arrived At: Physician: Stroke Resident; Name: ; Notified At: ; Arrived At: Physician: ED Attending; Name: ; Notified At: ; Arrived At: Physician: ED Resident; Name: ; Notified At: ; Arrived At: 11:51 1050 pts condition changed, see nurses notes tw2 Historical: - Allergies: 08:47 Codeine; tw2 08:47 Sulfa (Sulfonamide Antibiotics); tw2 - Home Meds: 08:55 metoprolol succinate 50 mg oral Tb24 1 tab once daily [Active]; sv - PMHx: 08:47 Hypertension; tw2 - PSHx: 08:47 collapsed lung; tw2 - Immunization history:: Adult Immunizations up to date, Adult Immunizations. - Social history:: Smoking status: Patient/guardian denies using tobacco, Smoking status: . - Ebola Screening: : No symptoms or risks identified at this time Patient denies travel to an Ebola-affected area in the 21 days before illness onset. Screenin:45 Abuse screen: Denies threats or abuse. Denies injuries from another. Nutritional sv screening: No deficits noted. Tuberculosis screening: No symptoms or risk factors identified. Fall Risk None identified. 08:47 Patient has been NPO before screening. The patient is alert, able to follow commands. tw2 The patient does not exhibit slurred or garbled speech The patient is not exhibiting difficulty speaking. The patient does not exhibit difficulty understanding words. The patient is able to swallow own secretions with no drooling or need for suction. Patient tolerated one teaspoon of water. No drooling, immediate coughing, gurgling, or clearing of the throat was noted. The patient tolerated 90mL of water. No drooling, immediate coughing, gurgling, or clearing of the throat was noted. The patient passed the bedside swallow screening. Oral medications may be given as ordered. Contact Physician for further diet orders. Provider notified of bedside swallow screening results: Oj Han MD. Assessment: 08:43 General: Appears in no apparent distress. comfortable, well developed, Behavior is sv calm, cooperative, appropriate for age. Pain: Denies pain. Neuro: Level of Consciousness is awake, alert, obeys commands, Oriented to person, place, time, situation, Moves all extremities. Full function Speech is normal, Facial symmetry appears normal, Facial symmetry: tongue is midline. Respiratory: Airway is patent Respiratory effort is even, unlabored, Respiratory pattern is regular, symmetrical. Derm: Skin is normal. 08:45 Patient has been NPO before screening. The patient is alert, and able to follow sv commands. The patient does not exhibit slurred or garbled speech. The patient is not exhibiting difficulty speaking. The patient does not exhibit difficulty understanding words. The patient is able to swallow own secretions with no drooling or need for suction. Patient tolerated one teaspoon of water. No drooling, immediate coughing, gurgling, or clearing of the throat was noted. The patient tolerated 90mL of water. No drooling, immediate coughing, gurgling, or clearing of the throat was noted. The patient passed the bedside swallow screening. Oral medications may be given as ordered. Contact Physician for further diet orders. Provider notified of bedside swallow screening results: Oj Han MD. 09:54 Reassessment: Patient appears in no apparent distress at this time. No changes from tw2 previously documented assessment. Patient and/or family updated on plan of care and expected duration. Pain level reassessed. Patient is alert, oriented x 3, equal unlabored respirations, skin warm/dry/pink. 10:50 T-PA (Activase) Screening: Indications: Treatment will start within 4.5 hours onset of tw2 symptoms: Yes. Consent for thrombolytic therapy: Yes. Reassessment: Per Dr. Han pts experiencing changes in right visual field, decision made to tPA, pt consented and tPA administered per protocol. 11:00 Reassessment: Patient appears in no apparent distress at this time. No changes from tw2 previously documented assessment. Patient and/or family updated on plan of care and expected duration. Pain level reassessed. Patient is alert, oriented x 3, equal unlabored respirations, skin warm/dry/pink. 11:05 Reassessment: SEE IV TPA VITAL \T\ NEUROLOGICAL FLOWSHEET IN PTS CHART. tw2 12:11 Reassessment: Patient appears in no apparent distress at this time. No changes from tw2 previously documented assessment. Patient and/or family updated on plan of care and expected duration. Pain level reassessed. Patient is alert, oriented x 3, equal unlabored respirations, skin warm/dry/pink. Vital Signs: 08:48 BP 209 / 106; Pulse 79; Resp 16; Temp 97.1(TE); Pulse Ox 97% on R/A; Pain 0/10; iw 08:57 BP 186 / 97; Pulse 63 MON; Resp 15; Pulse Ox 95% ; sv 08:59 Temp 98.7(O); Pain 0/10; tw2 09:54 BP 174 / 87; Pulse 61; Resp 11; Pulse Ox 97% on R/A; tw2 11:05 BP 191 / 100; Pulse 71; Resp 18; Pulse Ox 99% on R/A; tw2 11:10 Weight 70.08 kg (M); iw 11:17 BP 191 / 100; Pulse 64; Resp 13; Pulse Ox 97% on R/A; mh5 11:35 BP 175 / 81; Pulse 67; Resp 18; Pulse Ox 99% on R/A; tw2 08:57 Sinus Rhythm sv NIH Stroke Scale Scores: 08:43 NIHSS Score: 0 sv 08:48 NIHSS Score: 0 kdr 10:50 NIHSS Score: 2 kdr 10:51 NIHSS Score: 2 tw2 ED Course: 08:21 Patient arrived in ED. mr 08:22 Noreen Baker MD is Private Physician. mr 08:30 Oj Han MD is Attending Physician. kdr 08:38 Juana Schrader, DAFNE is Primary Nurse. sv 08:40 Patient has correct armband on for positive identification. Bed in low position. Call light in reach. Side rails up X2. Adult w/ patient. travel professional on. Pulse ox on. NIBP on. Door closed. Warm blanket given. Head of bed elevated. 08:40 Arm band placed on. sv 08:43 Initial lab(s) drawn, by me, sent to lab. Inserted saline lock: 20 gauge in right sv wrist, using aseptic technique. Blood collected. Flushed right with 5 ml normal saline. 08:48 Triage completed. iw 08:53 EKG done, by ED staff, reviewed by Oj Han MD. mh5 08:54 Awaiting lab results, Awaiting radiology results. sv 08:[address] via stretcher. sv 09:03 CT Stroke Brain w/o Contrast In Process Unspecified. EDMS 09:10 Stroke CXR 1 View In Process Unspecified. EDMS 09:12 Patient moved back from radiology. sv 11:16 Inserted saline lock: 20 gauge in left antecubital area, using aseptic technique. mh5 11:46 \T\[id number] initiated transfer with Jolanta at the transfer center/ \T\[address]Bershad schaefer with Dr. Han for patient transfer consultation/ \T\[id number] administrative approval given by Jolanta Womack report to be called to [phone]. 12:11 No provider procedures requiring assistance completed. Patient transferred, IV remains tw2 in place. Administered Medications: 08:51 Drug: Lopressor 2.5 mg {Note: HR 67.} Route: IVP; Site: right wrist; tw2 09:10 Follow up: Response: No adverse reaction; Blood pressure is lowered tw2 09:12 Follow up: Response: No adverse reaction sv 11:00 Drug: Aspirin Chewable Tablet 324 mg Route: PO; tw2 11:41 Follow up: Response: No adverse reaction tw2 11:42 Follow up: Response: No adverse reaction tw2 11:05 Drug: Alteplase (Bolus for Stroke) - Activase 0.09 mg/kg {Co-Signature: mattie Buck RN).} Route: IV Thrombolytics; Infused Over: 1 mins; 11:06 Follow up: Response: No adverse reaction tw2 11:05 Drug: Alteplase {Co-Signature: mattie Buck RN).} Route: IV Thrombolytics; Rate: tw2 calculated rate; 12:05 Follow up: Response: No adverse reaction tw2 11:18 Drug: Lopressor 2.5 mg Route: IVP; Site: left forearm; tw2 11:45 Follow up: Response: No adverse reaction; Blood pressure is unchanged tw2 11:32 Drug: Cardene 5 mg/hr Route: IV; Rate: calculated rate; Site: left femoral; tw2 Point of Care Testing: Blood Glucose: 08:43 Blood Glucose: 117 mg/dL; iw Ranges: Outcome: 11:08 ER care complete, transfer ordered by . kdr 11:45 Transferred Note: report given to DAFNE Lopez at [facility] 12:11 Patient left the ED. iw 12:11 Transferred by ground EMS to [facility]. tw2 12:11 Condition: stable 12:11 Instructed on the need for transfer. NIH Stroke Scale - NIH Stroke Score Date: 02/07/2018 Time: 08:43 Total Score = 0 1a. Level of Consciousness (LOC) - 0(Alert) 1b. Level of Consciousness (LOC) (Year \T\ Age) - 0(Both) 1c. LOC Commands (Open \T\ Closes Eyes/Tire Fabric Impregnating Range Tender) - 0(Both) 2. Best Gaze (Lateral Gaze Paresis) - 0(Normal) 3. Visual Field Loss - 0(No visual loss) 4. Facial Palsy - 0(Normal) 5a. Left Arm: Motor (10-second hold) - 0(No drift) 5b. Right Arm: Motor (10-second hold) - 0(No drift) 6a. Left Leg: Motor (5-second hold - always test supine) - 0(No drift) 6b. Right Leg: Motor (5-second hold - always test supine) - 0(No drift) 7. Limb Ataxia (finger/nose \T\ heel/chen - test with eyes open) - 0(Absent) 8. Sensory Loss (pinprick arms/legs/face) - 0(Normal) 9. Best Language: Aphasia (description/naming/reading) - 0(No aphasia) 10. Dysarthria (speech clarity - read or repeat words) - 0(Normal) 11. Extinction and Inattention (visual/tactile/auditory/spatial/personal) - 0(No abnormality) Initials: NIH Stroke Scale - NIH Stroke Score Date: 02/07/2018 Time: 08:48 Total Score = 0 1a. Level of Consciousness (LOC) - 0(Alert) 1b. Level of Consciousness (LOC) (Year \T\ Age) - 0(Both) 1c. LOC Commands (Open \T\ Closes Eyes/Tire [employer] Impregnating Range Tender) - 0(Both) 2. Best Gaze (Lateral Gaze Paresis) - 0(Normal) 3. Visual Field Loss - 0(No visual loss) 4. Facial Palsy - 0(Normal) 5a. Left Arm: Motor (10-second hold) - 0(No drift) 5b. Right Arm: Motor (10-second hold) - 0(No drift) 6a. Left Leg: Motor (5-second hold - always test supine) - 0(No drift) 6b. Right Leg: Motor (5-second hold - always test supine) - 0(No drift) 7. Limb Ataxia (finger/nose \T\ heel/chen - test with eyes open) - 0(Absent) 8. Sensory Loss (pinprick arms/legs/face) - 0(Normal) 9. Best Language: Aphasia (description/naming/reading) - 0(No aphasia) 10. Dysarthria (speech clarity - read or repeat words) - 0(Normal) 11. Extinction and Inattention (visual/tactile/auditory/spatial/personal) - 0(No abnormality) Initials: kdr NIH Stroke Scale - NIH Stroke Score Date: 02/07/2018 Time: 10:50 Total Score = 2 1a. Level of Consciousness (LOC) - 0(Alert) 1b. Level of Consciousness (LOC) (Year \T\ Age) - 0(Both) 1c. LOC Commands (Open \T\ Closes Eyes/Tire Fab[employer] Impregnating Range Tender) - 0(Both) 2. Best Gaze (Lateral Gaze Paresis) - 0(Normal) 3. Visual Field Loss - 2(Complete hemianopia) 4. Facial Palsy - 0(Normal) 5a. Left Arm: Motor (10-second hold) - 0(No drift) 5b. Right Arm: Motor (10-second hold) - 0(No drift) 6a. Left Leg: Motor (5-second hold - always test supine) - 0(No drift) 6b. Right Leg: Motor (5-second hold - always test supine) - 0(No drift) 7. Limb Ataxia (finger/nose \T\ heel/chen - test with eyes open) - 0(Absent) 8. Sensory Loss (pinprick arms/legs/face) - 0(Normal) 9. Best Language: Aphasia (description/naming/reading) - 0(No aphasia) 10. Dysarthria (speech clarity - read or repeat words) - 0(Normal) 11. Extinction and Inattention (visual/tactile/auditory/spatial/personal) - 0(No abnormality) Initials: [facility] NIH Stroke Scale - NIH Stroke Score Date: 02/07/2018 Time: 10:51 Total Score = 2 1a. Level of Consciousness (LOC) - 0(Alert) 1b. Level of Consciousness (LOC) (Year \T\ Age) - 0(Both) 1c. LOC Commands (Open \T\ Closes Eyes/Tire Fab[employer] Impregnating Range Tender) - 0(Both) 2. Best Gaze (Lateral Gaze Paresis) - 0(Normal) 3. Visual Field Loss - 2(Complete hemianopia) 4. Facial Palsy - 0(Normal) 5a. Left Arm: Motor (10-second hold) - 0(No drift) 5b. Right Arm: Motor (10-second hold) - 0(No drift) 6a. Left Leg: Motor (5-second hold - always test supine) - 0(No drift) 6b. Right Leg: Motor (5-second hold - always test supine) - 0(No drift) 7. Limb Ataxia (finger/nose \T\ heel/chen - test with eyes open) - 0(Absent) 8. Sensory Loss (pinprick arms/legs/face) - 0(Normal) 9. Best Language: Aphasia (description/naming/reading) - 0(No aphasia) 10. Dysarthria (speech clarity - read or repeat words) - 0(Normal) 11. Extinction and Inattention (visual/tactile/auditory/spatial/personal) - 0(No abnormality) Initials: tw2 Signatures: Dispatcher [employer] Juana Juárez RN RN Oj Han MD MD kdr Rivera, Mary mr Williams, Irene, RN RN iw Wise, Tara, RN RN 2 Serena Umanzor [facility] Reanna Art [facility] Latanya Spence RN iw Corrections: (The following items were deleted from the chart) 08:53 08:40 Inserted saline lock: 20 gauge in right wrist, using aseptic technique. sv Blood collected. Flushed right with 5 ml normal saline 08:53 08:40 Initial lab(s) drawn, by me, sent to lab. sv sv 08:55 08:47 Home Meds: lisinopril 20 mg Oral tab 1 tab once daily; tw2 sv 08:55 08:47 Home Meds: metoprolol tartrate 25 mg Oral tab 1 tab once daily; 08:59 08:50 Patient moved to [address]
--- NOTE | 2018-02-07 11:09 | EDPHYS ---
Physician Documentation [facility] Name: Arelis Bowden Age: 82 yrs Sex: Female : 1935 Arrival Date: 02/07/2018 Time: 08:21 Bed 4 Private MD: Noreen Baker ED Physician Oj Han HPI: 02/07 08:48 This 82 yrs old Female presents to ER via Wheelchair with complaints of kdr Dizziness, High Blood Pressure. 08:48 The patient presents with dizziness, generalized weakness, a sense of confusion. Onset: kdr The symptoms/episode began/occurred suddenly, just prior to arrival. Context: occurred at home, occurred while the patient was standing, just prior to the episode the patient experienced no apparent symptoms, The patient states that she had just been up for about 15 minutes when she began to get confused and dizzy. She had not had this before. Onset about 07:15. By the time of arrival, the patients s/s have resolved expect for subjective right facial paresthesia.. 08:55 Code stroke not called since her Stroke scale was "0" and all s/s have resolved except kdr for subjective right facial paresthesia . Historical: - Allergies: 08:47 Codeine; tw2 08:47 Sulfa (Sulfonamide Antibiotics); tw2 - Home Meds: 08:55 metoprolol succinate 50 mg oral Tb24 1 tab once daily [Active]; sv - PMHx: 08:47 Hypertension; tw2 - PSHx: 08:47 collapsed lung; tw2 - Immunization history:: Adult Immunizations up to date, Adult Immunizations. - Social history:: Smoking status: Patient/guardian denies using tobacco, Smoking status: . - Ebola Screening: : No symptoms or risks identified at this time Patient denies travel to an Ebola-affected area in the 21 days before illness onset. ROS: 09:25 Constitutional: Negative for fever, chills, and weight loss, Eyes: Negative for injury, kdr pain, redness, and discharge, ENT: Negative for injury, pain, and discharge, Neck: Negative for injury, pain, and swelling, Cardiovascular: Negative for chest pain, palpitations, and edema, Respiratory: Negative for shortness of breath, cough, wheezing, and pleuritic chest pain, Abdomen/GI: Negative for abdominal pain, nausea, vomiting, diarrhea, and constipation, Back: Negative for injury and pain, : Negative for injury, bleeding, discharge, and swelling, MS/Extremity: Negative for injury and deformity, Skin: Negative for injury, rash, and discoloration, Psych: Negative for depression, anxiety, suicide ideation, homicidal ideation, and hallucinations, Allergy/Immunology: Negative for hives, rash, and allergies, Endocrine: Negative for neck swelling, polydipsia, polyuria, polyphagia, and marked weight changes, Hematologic/Lymphatic: Negative for swollen nodes, abnormal bleeding, and unusual bruising. 09:25 Neuro: Positive for dizziness. Exam: 11:34 Constitutional: This is a well developed, well nourished patient who is awake, alert, kdr and in no acute distress. Head/Face: Normocephalic, atraumatic. Eyes: Pupils equal round and reactive to light, extra-ocular motions intact. Lids and lashes normal. Conjunctiva and sclera are non-icteric and not injected. Cornea within normal limits. Periorbital areas with no swelling, redness, or edema. ENT: Nares patent. No nasal discharge, no septal abnormalities noted. Tympanic membranes are normal and external auditory canals are clear. Oropharynx with no redness, swelling, or masses, exudates, or evidence of obstruction, uvula midline. Mucous membranes moist. Neck: Trachea midline, no thyromegaly or masses palpated, and no cervical lymphadenopathy. Supple, full range of motion without nuchal rigidity, or vertebral point tenderness. No Meningismus. Chest/axilla: Normal chest wall appearance and motion. Nontender with no deformity. No lesions are appreciated. Cardiovascular: Regular rate and rhythm with a normal S1 and S2. No gallops, murmurs, or rubs. Normal PMI, no JVD. No pulse deficits. Respiratory: Lungs have equal breath sounds bilaterally, clear to auscultation and percussion. No rales, rhonchi or wheezes noted. No increased work of breathing, no retractions or nasal flaring. Abdomen/GI: Soft, non-tender, with normal bowel sounds. No distension or tympany. No guarding or rebound. No evidence of tenderness throughout. Back: No spinal tenderness. No costovertebral tenderness. Full range of motion. Skin: Warm, dry with normal turgor. Normal color with no rashes, no lesions, and no evidence of cellulitis. MS/ Extremity: Pulses equal, no cyanosis. Neurovascular intact. Full, normal range of motion. Neuro: Awake and alert, GCS 15, oriented to person, place, time, and situation. Cranial nerves II-XII grossly intact. Motor strength 5/5 in all extremities. Sensory grossly intact. Cerebellar exam normal. Normal gait. Psych: Awake, alert, with orientation to person, place and time. Behavior, mood, and affect are within normal limits. Vital Signs: 08:48 BP 209 / 106; Pulse 79; Resp 16; Temp 97.1(TE); Pulse Ox 97% on R/A; Pain 0/10; iw 08:57 BP 186 / 97; Pulse 63 MON; Resp 15; Pulse Ox 95% ; sv 08:59 Temp 98.7(O); Pain 0/10; tw2 09:54 BP 174 / 87; Pulse 61; Resp 11; Pulse Ox 97% on R/A; tw2 11:05 BP 191 / 100; Pulse 71; Resp 18; Pulse Ox 99% on R/A; tw2 11:10 Weight 70.08 kg (M); iw 11:17 BP 191 / 100; Pulse 64; Resp 13; Pulse Ox 97% on R/A; mh5 11:35 BP 175 / 81; Pulse 67; Resp 18; Pulse Ox 99% on R/A; tw2 08:57 Sinus Rhythm sv NIH Stroke Scale Scores: 08:43 NIHSS Score: 0 sv 08:48 NIHSS Score: 0 kdr 10:50 NIHSS Score: 2 kdr 10:51 NIHSS Score: 2 tw2 MDM: 09:24 Differential diagnosis: cardiac arrhythmia, CVA, generalized weakness, TIA, vertigo. kdr Data reviewed: vital signs, nurses notes. Counseling: I had a detailed discussion with the patient and/or guardian regarding: the historical points, exam findings, and any diagnostic results supporting the discharge/admit diagnosis, lab results, radiology results. 09:24 ED course: CT Head negative for any acute stroke per Dr. Arnold. kdr 11:00 ED course: On re-evaluation, patient c/o discomfort in left eye. 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 D/w Dr. Kimble/neurology - now recommend tPA given less than 4.5 hrs. Accepted in transfer. 11:08 Patient medically screened. [facility] 02/08 10:08 ED course: Code stroke was not initiated on arrival since the patient had no current kdr symptoms and a stroke scale of "0." Upon re-evaluation, the patient now c/o visual field loss with a bilateral right homonymous hemianopsia now noted on exam. Conferred with neurology and it was agreed that the patient should be offered tPA. tPA was administered without complication and she was transferred to [facility] without further complaint. No improvement was noted in her visual field deficit at the time of transfer. 02/07 08:47 Order name: Basic Metabolic Panel; Complete Time: 10:41 kdr 02/07 08:47 Order name: CBC with Diff; Complete Time: 09:24 kdr 02/07 08:47 Order name: Protime (+inr); Complete Time: 09:24 kdr 02/07 08:47 Order name: Ptt, Activated; Complete Time: 09:24 kdr 02/07 08:47 Order name: CT Stroke Brain w/o Contrast; Complete Time: 10:41 [facility] 02/07 08:53 Order name: Glucose, Ancillary Testing; Complete Time: 09:24 EDMS 02/07 08:47 Order name: Stroke CXR 1 View; Complete Time: 10:41 kdr 02/07 08:47 Order name: EKG; Complete Time: 08:48 kdr 02/07 08:47 Order name: Accucheck; Complete Time: 08:50 kdr 02/07 08:47 Order name: Cardiac monitoring; Complete Time: 08:50 [facility] 02/07 08:47 Order name: EKG - Nurse/Tech; Complete Time: 08:50 [facility] 02/07 08:47 Order name: IV Saline Lock; Complete Time: 08:50 kdr 02/07 08:47 Order name: Labs collected and sent; Complete Time: 08:50 [facility] 02/07 08:47 Order name: NPO; Complete Time: 08:50 [facility] 02/07 08:47 Order name: O2 Per Protocol; Complete Time: 08:50 [facility] 02/07 08:47 Order name: O2 Sat Monitoring; Complete Time: 08:50 [facility] 02/07 08:47 Order name: Stroke Swallow Screen; Complete Time: 08:50 kdr Administered Medications: 02/07 08:51 Drug: Lopressor 2.5 mg {Note: HR 67.} Route: IVP; Site: right wrist; tw2 09:10 Follow up: Response: No adverse reaction; Blood pressure is lowered tw2 09:12 Follow up: Response: No adverse reaction sv 11:00 Drug: Aspirin Chewable Tablet 324 mg Route: PO; tw2 11:41 Follow up: Response: No adverse reaction tw2 11:42 Follow up: Response: No adverse reaction tw2 11:05 Drug: Alteplase (Bolus for Stroke) - Activase 0.09 mg/kg {Co-Signature: iw (Yvette Buck RN).} Route: IV Thrombolytics; Infused Over: 1 mins; 11:06 Follow up: Response: No adverse reaction tw2 11:05 Drug: Alteplase {Co-Signature: iw (Yvette Buck RN).} Route: IV Thrombolytics; Rate: tw2 calculated rate; 12:05 Follow up: Response: No adverse reaction tw2 11:18 Drug: Lopressor 2.5 mg Route: IVP; Site: left forearm; tw2 11:45 Follow up: Response: No adverse reaction; Blood pressure is unchanged tw2 11:32 Drug: Cardene 5 mg/hr Route: IV; Rate: calculated rate; Site: left femoral; tw2 Point of Care Testing: Blood Glucose: 08:43 Blood Glucose: 117 mg/dL; iw Ranges: Critical Glucose Levels:Adult <50 mg/dl or >400 mg/dl <40 mg/dl or >180 mg/dl Disposition: 02/07/18 11:[address] [facility]. Diagnosis is CVA - Non-hemorhagic. - Reason for transfer: Higher level of care. - Accepting physician is Dr. Stokes. - Condition is Fair. - Problem is new. - Symptoms have worsened. NIH Stroke Scale - NIH Stroke Score Date: 02/07/2018 Time: 08:43 Total Score = 0 1a. Level of Consciousness (LOC) - 0(Alert) 1b. Level of Consciousness (LOC) (Year \\T\\ Age) - 0(Both) 1c. LOC Commands (Open \\T\\ Closes Eyes/Systems Mgr) - 0(Both) 2. Best Gaze (Lateral Gaze Paresis) - 0(Normal) 3. Visual Field Loss - 0(No visual loss) 4. Facial Palsy - 0(Normal) 5a. Left Arm: Motor (10-second hold) - 0(No drift) 5b. Right Arm: Motor (10-second hold) - 0(No drift) 6a. Left Leg: Motor (5-second hold - always test supine) - 0(No drift) 6b. Right Leg: Motor (5-second hold - always test supine) - 0(No drift) 7. Limb Ataxia (finger/nose \\T\\ heel/chen - test with eyes open) - 0(Absent) 8. Sensory Loss (pinprick arms/legs/face) - 0(Normal) 9. Best Language: Aphasia (description/naming/reading) - 0(No aphasia) 10. Dysarthria (speech clarity - read or repeat words) - 0(Normal) 11. Extinction and Inattention (visual/tactile/auditory/spatial/personal) - 0(No abnormality) Initials: NIH Stroke Scale - NIH Stroke Score Date: 02/07/2018 Time: 08:48 Total Score = 0 1a. Level of Consciousness (LOC) - 0(Alert) 1b. Level of Consciousness (LOC) (Year \\T\\ Age) - 0(Both) 1c. LOC Commands (Open \\T\\ Closes Eyes/Systems Mgr) - 0(Both) 2. Best Gaze (Lateral Gaze Paresis) - 0(Normal) 3. Visual Field Loss - 0(No visual loss) 4. Facial Palsy - 0(Normal) 5a. Left Arm: Motor (10-second hold) - 0(No drift) 5b. Right Arm: Motor (10-second hold) - 0(No drift) 6a. Left Leg: Motor (5-second hold - always test supine) - 0(No drift) 6b. Right Leg: Motor (5-second hold - always test supine) - 0(No drift) 7. Limb Ataxia (finger/nose \\T\\ heel/chen - test with eyes open) - 0(Absent) 8. Sensory Loss (pinprick arms/legs/face) - 0(Normal) 9. Best Language: Aphasia (description/naming/reading) - 0(No aphasia) 10. Dysarthria (speech clarity - read or repeat words) - 0(Normal) 11. Extinction and Inattention (visual/tactile/auditory/spatial/personal) - 0(No abnormality) Initials: [facility] NIH Stroke Scale - NIH Stroke Score Date: 02/07/2018 Time: 10:50 Total Score = 2 1a. Level of Consciousness (LOC) - 0(Alert) 1b. Level of Consciousness (LOC) (Year \\T\\ Age) - 0(Both) 1c. LOC Commands (Open \\T\\ Closes Eyes/Systems Mgr) - 0(Both) 2. Best Gaze (Lateral Gaze Paresis) - 0(Normal) 3. Visual Field Loss - 2(Complete hemianopia) 4. Facial Palsy - 0(Normal) 5a. Left Arm: Motor (10-second hold) - 0(No drift) 5b. Right Arm: Motor (10-second hold) - 0(No drift) 6a. Left Leg: Motor (5-second hold - always test supine) - 0(No drift) 6b. Right Leg: Motor (5-second hold - always test supine) - 0(No drift) 7. Limb Ataxia (finger/nose \\T\\ heel/chen - test with eyes open) - 0(Absent) 8. Sensory Loss (pinprick arms/legs/face) - 0(Normal) 9. Best Language: Aphasia (description/naming/reading) - 0(No aphasia) 10. Dysarthria (speech clarity - read or repeat words) - 0(Normal) 11. Extinction and Inattention (visual/tactile/auditory/spatial/personal) - 0(No abnormality) Initials: [facility] NIH Stroke Scale - NIH Stroke Score Date: 02/07/2018 Time: 10:51 Total Score = 2 1a. Level of Consciousness (LOC) - 0(Alert) 1b. Level of Consciousness (LOC) (Year \\T\\ Age) - 0(Both) 1c. LOC Commands (Open \\T\\ Closes Eyes/Systems Mgr) - 0(Both) 2. Best Gaze (Lateral Gaze Paresis) - 0(Normal) 3. Visual Field Loss - 2(Complete hemianopia) 4. Facial Palsy - 0(Normal) 5a. Left Arm: Motor (10-second hold) - 0(No drift) 5b. Right Arm: Motor (10-second hold) - 0(No drift) 6a. Left Leg: Motor (5-second hold - always test supine) - 0(No drift) 6b. Right Leg: Motor (5-second hold - always test supine) - 0(No drift) 7. Limb Ataxia (finger/nose \\T\\ heel/chen - test with eyes open) - 0(Absent) 8. Sensory Loss (pinprick arms/legs/face) - 0(Normal) 9. Best Language: Aphasia (description/naming/reading) - 0(No aphasia) 10. Dysarthria (speech clarity - read or repeat words) - 0(Normal) 11. Extinction and Inattention (visual/tactile/auditory/spatial/personal) - 0(No abnormality) Initials: tw2 Signatures: Dispatcher [employer] Juana Juárez RN RN sv Oj Han MD MD kdr Yvette Buck RN RN iw Cata Petersen RN RN tw2 Yvette Buck RN iw Corrections: (The following items were deleted from the chart) 08:55 08:47 Home Meds: lisinopril 20 mg Oral tab 1 tab once daily; tw2 sv 08:55 08:47 Home Meds: metoprolol tartrate 25 mg Oral tab 1 tab once daily; 11:10 11:00 ED course: On re-evaluation, patient c/o discomfort in left eye. Patient kdr now has right hemianopsia. D/w Dr. Kimble/neurology - now recommend tPA given less than 4.5 hrs. Accepted in transfer. kdr 12:11 11:08 02/07/2018 11:[address] [facility]. iw Diagnosis is CVA - Non-hemorhagic. Reason for transfer: Higher level of care. Accepting physician is Dr. Stokes. Condition is Fair. Problem is new. Symptoms have worsened. kdr
[2018-02-07] MEDS ORDERED: NA CHLORIDE 0.9% 500 ML ONE (11:14)
[2018-02-07] MEDS ORDERED: Nicardipine/NS 25 MG/250 ML KIT IV ONE (11:35)
[2018-02-07 12:20] VITALS: TEMP 98.7
[2018-02-07 12:26] VITALS: BP 175/81; O2SAT 99
--- NOTE | 2018-02-08 06:10 | EKG ---
Test Date: 2018-02-07 Test Time: 08:50:37 [employer]: RAMONA MEASUREMENT RESULTS: Intervals: Rate: 63 WI: 224 QRSD: 86 QT: 424 QTc: 433 [place]: P: 68 WI: 224 QRS: 21 T: 15 INTERPRETIVE STATEMENTS: Sinus rhythm with 1st degree AV block Otherwise normal ECG Compared to ECG 09/24/2017 20:30:49 No significant changes Electronically Signed On 02-08-18 06:10:07 DISPLAY CARD WRITER by Adan Ervin
== END 2018-02-07 12:11 | disposition short-term general hospital (02) ==
LOC: ER 08:18
DX: I63.9 Cerebral infarction, unspecified (principal); I10 Essential (primary) hypertension; R29.702 NIHSS score 2; Z88.2 Allergy status to sulfonamides; Z88.5 Allergy status to narcotic agent
CPT/HCPCS: 36415; 70450; 71045; 80048; 82962; 85025; 85610; 85730; 92977; 93005; 96374; 99285; J2997

== ENCOUNTER 2018-02-13 15:36 | Emergency (ER) | payer OTHER ==
--- OUTSIDE RECORDS SUMMARY | 2018-02-13 15:39 | XMS REPORT | Clinical Summary ---
:1935 Author Organization [facility] Address [address] [place] [address] Care Team Providers Name Role Phone Unavailable Primary Care Provider Unavailable Allergies Active Allergy Reactions Severity Noted Date Comments Codeine Nausea Only 02/07/2018 Medications Medication Sig Dispensed Refills Start Date End Date Status metoprolol Take 50 mg by 0 Active (TOPROL-XL) 50 MG mouth daily. 24 hr tablet aspirin 81 MG EC Take 81 mg by 0 Active tablet mouth daily. apixaban (ELIQUIS) Take 1 tablet 60 tablet 2 02/09/2018 03/11/2018 Active 5 mg Tab tablet (5 mg total) by mouth 2 (two) times daily for 30 days. atorvastatin Take 1 tablet 30 tablet 2 02/09/2018 03/11/2018 Active (LIPITOR) 80 MG (80 mg total) tablet by mouth nightly for 30 days. apixaban (ELIQUIS) Take 1 tablet 60 tablet 2 02/09/2018 02/09/2018 Discontinued 5 mg Tab tablet (5 mg total) by mouth 2 (two) times daily for 30 days. atorvastatin Take 1 tablet 30 tablet 2 02/09/2018 02/09/2018 Discontinued (LIPITOR) 80 MG (80 mg total) tablet by mouth nightly for 30 days. apixaban (ELIQUIS) Take 1 tablet 60 tablet 2 02/09/2018 02/09/2018 Discontinued 5 mg Tab tablet (5 mg total) by mouth 2 (two) times daily for 30 days. atorvastatin Take 1 tablet 30 tablet 2 02/09/2018 02/09/2018 Discontinued (LIPITOR) 80 MG (80 mg total) tablet by mouth nightly for 30 days. apixaban (ELIQUIS) Take 1 tablet 60 tablet 2 02/09/2018 02/09/2018 Discontinued 5 mg Tab tablet (5 mg total) by mouth 2 (two) times daily for 30 days. atorvastatin Take 1 tablet 30 tablet 2 02/09/2018 02/09/2018 Discontinued (LIPITOR) 80 MG (80 mg total) tablet by mouth nightly for 30 days. apixaban (ELIQUIS) Take 1 tablet 60 tablet 2 02/09/2018 02/09/2018 Discontinued 5 mg Tab tablet (5 mg total) by mouth 2 (two) times daily for 30 days. atorvastatin Take 1 tablet 30 tablet 2 02/09/2018 02/09/2018 Discontinued (LIPITOR) 80 MG (80 mg total) tablet by mouth nightly for 30 days. Active Problems Problem Noted Date Ischemic stroke 02/07/2018 Encounters Date Type Specialty Care Team Description 02/07/2018 - Hospital Encounter Intensive Care Bryon Cheng Ischemic stroke (HCC); 02/09/2018 MD Kleber Received intravenous tissue plasminogen activator (tPA) in emergency department; Fili Verduzco Paroxysmal atrial fibrillation (HCC) MD Traci 02/07/2018 Travel after 02/12/2017 Social History Tobacco Use Types Packs/Day Years Used Date Former Smoker Smokeless Tobacco: Never Used Sex Assigned at Date Recorded Not on file Job Start Date Occupation Industry Not on file Not on file Not on file Travel History Travel Start Travel End No recent travel history available. Last Filed Vital Signs Vital Sign Reading Time Taken Blood Pressure 144/70 02/09/2018 2:00 PM [employer]IOR PROGRAMMER [employer]NALY[employer] Pulse 65 02/09/2018 2:00 PM [employer]IOR PROGRAMMER [employer]NALYST Temperature 36.6 C (97.8 F) 02/09/2018 12:00 PM [employer] PROGRAMMER [employer]NALY[employer] Respiratory Rate 33 02/09/2018 2:00 PM J[employer]IOR PROGRAMMER [employer]NALYST Oxygen Saturation 96% 02/09/2018 2:00 PM JUNIOR PROGRAMMER ANALYST Inhaled Oxygen Concentration - - Weight 68.8 kg (151 lb 10.8 oz) 02/07/2018 2:00 PM J[employer]IOR PROGRAMMER ANALYST Height 167.6 cm (5' 6") 02/07/2018 2:00 PM J[employer]IOR PROGRAMMER ANALYST Body Mass Index 24.48 02/07/2018 2:00 PM JUNIOR PROGRAMMER ANALYST Plan of Treatment Not on file Procedures Procedure Name Priority Date/Time Associated Comments Diagnosis ECHOCARDIOGRAM REPORT 02/09/2018 2:34 - SCAN PM [employer]IOR PROGRAMMER [employer]NALYST POCT-GLUCOSE METER Routine 02/09/2018 12:28 Results for this PM [employer]IOR PROGRAMMER ANALYST procedure are in the results section. POCT-GLUCOSE METER Routine 02/09/2018 10:53 Results for this AM J[employer]IOR PROGRAMMER ANALYST procedure are in the results section. 2D ECHO W/ DOPPLER Routine 02/09/2018 10:43 Results for this (CW/PW/COLOR) AM JUNIOR PROGRAMMER ANALYST procedure are in the results section. POCT-GLUCOSE METER Routine 02/09/2018 7:46 Results for this AM J[employer]IOR PROGRAMMER ANALYST procedure are in the results section. CBC W/PLT COUNT & AUTO Routine 02/09/2018 4:09 Results for this DIFFERENTIAL AM [employer] PROGRAMMER [employer]NALYST procedure are in the results section. CBC W/PLT COUNT & AUTO Routine 02/09/2018 4:09 Results for this DIFFERENTIAL AM [employer] PROGRAMMER [employer]NALYST procedure are in the results section. BASIC METABOLIC PANEL Routine 02/09/2018 4:09 Results for this (7) AM [employer] PROGRAMMER [employer]NALYST procedure are in the results section. POCT-GLUCOSE METER Routine 02/08/2018 10:21 Results for this PM [employer] PROGRAMMER [employer]NALYST procedure are in the results section. MR BRAIN WITHOUT IV Routine 02/08/2018 11:50 Results for this CONTRAST AM [employer]IOR PROGRAMMER ANALYST procedure are in the results section. MR MRA NECK WITHOUT IV Routine 02/08/2018 11:50 Results for this CONTRAST AM J[employer] PROGRAMMER ANALYST procedure are in the results section. MR MRA HEAD WITHOUT Routine 02/08/2018 11:50 Results for this CONTRAST AM J[employer]IOR PROGRAMMER ANALYST procedure are in the results section. POCT-GLUCOSE METER Routine 02/08/2018 8:10 Results for this AM [employer] PROGRAMMER [employer]NALYST procedure are in the results section. URINALYSIS W/ REFLEX Routine 02/08/2018 7:18 Results for this URINE CULTURE AM [employer]IOR PROGRAMMER ANALYST procedure are in the results section. URINE CULTURE Routine 02/08/2018 7:18 Results for this AM [employer] PROGRAMMER ANALYST procedure are in the results section. CBC W/PLT COUNT & AUTO Routine 02/08/2018 3:58 Results for this DIFFERENTIAL AM J[employer]IOR PROGRAMMER ANALYST procedure are in the results section. VITAMIN B12 AND FOLATE Routine 02/08/2018 3:58 Results for this AM J[employer]IOR PROGRAMMER ANALYST procedure are in the results section. ALT (SGPT) Routine 02/08/2018 3:58 Results for this AM J[employer]IOR PROGRAMMER ANALYST procedure are in the results section. AST (SGOT) Routine 02/08/2018 3:58 Results for this AM J[employer]IOR PROGRAMMER ANALYST procedure are in the results section. PT/APTT Routine 02/08/2018 3:58 Results for this AM [employer] PROGRAMMER ANALYST procedure are in the results section. CBC W/PLT COUNT & AUTO Routine 02/08/2018 3:58 Results for this DIFFERENTIAL AM JUNIOR PROGRAMMER ANALYST procedure are in the results section. BASIC METABOLIC PANEL Routine 02/08/2018 3:58 Results for this (7) AM J[employer] PROGRAMMER [employer]NALYST procedure are in the results section. POCT-GLUCOSE METER Routine 02/08/2018 12:01 Results for this AM J[employer]IOR PROGRAMMER ANALYST procedure are in the results section. TROPONIN I Routine 02/08/2018 12:01 Results for this AM J[employer]IOR PROGRAMMER ANALYST procedure are in the results section. ECG 12-LEAD STAT 02/07/2018 8:28 Results for this PM [employer] PROGRAMMER [employer]NALYST procedure are in the results section. TROPONIN I Routine 02/07/2018 5:10 Results for this PM [employer] PROGRAMMER [employer]NALYST procedure are in the results section. HEMOGLOBIN A1C AP Routine 02/07/2018 2:41 Results for this PM [employer]GRAMMER [employer]LY[employer] procedure are in the results section. LIPID PANEL Routine 02/07/2018 2:41 Results for this PM [employer]GRAMMER [employer]LY[employer] procedure are in the results section. TSH/FREE T4 IF Routine 02/07/2018 2:41 Results for this INDICATED PM [employer] PROGRAMMER ANALYST procedure are in the results section. after 02/12/2017 Results ECHOCARDIOGRAM REPORT - SCAN (02/09/2018 2:34 PM JUNIOR PROGRAMMER ANALYST) Narrative Performed At POC-Glucose meter (02/09/2018 12:28 PM JUNIOR PROGRAMMER ANALYST)Only the most recent of6 resultswithin the time period is included. POC-Glucose Meter 87Comment: TESTED AT 70 - 110 mg/dL [place] [id number] [facility] [id number] Specimen Blood Performing Organization Address City/State/Zipcode Phone Number [facility] [address] [place] [phone] CENTER 2D Echo W/Doppler(CW/PW/Color) (02/09/2018 10:43 AM JUNIOR PROGRAMMER ANALYST) Ejection Fraction [facility] Narrative Performed At Transthoracic Echocardiography Report (TTE) [facility] Demographics Patient Name ARELIS BOWDENDate of Study 02/09/2018 GARRY [id number] GenderFemale Visit Number [id number] Unknown [id number] Room Number 7513 Number Date of Birth1935Referring Physician Age82 year(s)Health Care Coach Jatinder West [facility] Needs to be Pre Physician Read Derek Eli MD Procedure Type of Study TTE procedure:2DECHO W DOPPLER(CW/PW/COLOR) (Routine) Indications:Stroke . Clinical History Hypertension Atrial Fibrillation/flutter HGB 11.1 HCT 34.9 % Contrast Medium: Bubble Study. Height: 66 inches Weight: 68.49 kg (151 lbs) BSA: 1.77 m^2 BMI: 24.37 kg/m^2 HR: 65 bpm BP: 171/103 mmHg Summary IV saline contrast injection was negative for a PFO (patent foramen ovale) at rest and post Valsalva . The left ventricle is chamber size (by vol index) is normal (female - LVED vol - 29-61ml/m2). Mild concentric LV hypertrophy. All of the LV segments contract normally . Estimated LVEF by qualitative assessment is normal (60%) . Grade 2 diastolic dysfunction (moderately increased LA pressure). Unable to estimate peak systolic PA pressure; inadequate TR velocity signal. Signature Findings Left Ventricle The left ventricle is chamber size (by vol index) is normal (female - LVED vol - 29-61ml/m2). Mild co ncentric LV hypertrophy. All of the LV segments co ntract normally . Estimated LVEF by qualitative as sessment is normal (60%) . Gr wanda 2 diastolic dysfunction (moderately increased LA pressure). Left AtriumLA size is mildly enlarged (35-41 ml/m2) . Right VentricleThe right ventricular chamber size and systolic fu nction are within normal limits. Right Atrium RA size is mildly dilated. Atrial SeptumIV saline contrast injection was negative for a PFO (p atent foramen ovale) at rest and post Valsalva . Aortic Valve Normal AoV structure. Th ere is mild aortic regurgitation. Mitral Valve Mild MV leaflet thickening. Mi ld mitral annular calcification. Tricuspid ValveTV structure is normal. Un able to estimate peak systolic PA pressure; in adequate TR velocity signal. Pulmonic Valve Normal PV structure and function by limited views an d Doppler. AortaAortic root size (SInus of Valsalva diameter) is yony rderline dilated . PericardiumNo pericardial effusion is visualized. IVC/SVC/PA/PV/PleuralThe estimated RA pressure by IVC dynamics 0-5mmHg . Chambers/Structures Left Atrium LA Dimension: 3.27 cmLA Area: 22.97 cm^2 LA Volume: 72.95 ml LA Vol. Index: 41 ml/m^2 Left Ventricle LVIDd: 4.09 cm LVIDs: 2.64 cm LV Septum Diastolic: 1.21 cm LV PW Diastolic: 1.24 cm LV FS: 35.5 % LVOT Diameter: 2.1 cm Aorta Ao Root S of Catherine.: 3.49 cm Doppler/Quantitative Measurements LVOT Peak Velocity: 0.83 m/s Peak Gradient: 2.76 mmHg Mean Velocity: 0.57 m/s Mean Gradient: 1.48 mmHg LVOT Diameter: 2.1 cm LVOT VTI: 18.09 cm LVOT Area: 3.46 cm^2LVOT SV:62.62 ml LVOT CO: 4.07 l/min LVOT CI: 2.3 l/min/m^2 Procedure Note Interface, External Ris In - 02/09/2018 1:42 PM JUNIOR PROGRAMMER ANALYST Transthoracic Echocardiography Report (TTE) Demographics Patient Name ARELIS BOWDEN Date of Study 02/09/2018 GARRY Gender Female Visit Number [id number] Race Unknown Room Number 7513 Number Date of 1935 Referring Physician Age 82 year(s) Health Care Coach Jatinder West RDCS [facility]ting [facility] Needs to be Pre Physician Read Derek Eli MD Procedure Type of Study TTE procedure:2DECHO W DOPPLER(CW/PW/COLOR) (Routine) Indications:Stroke . Clinical History Hypertension Atrial Fibrillation/flutter HGB 11.1 HCT 34.9 % Contrast Medium: Bubble Study. Height: 66 inches Weight: 68.49 kg (151 lbs) BSA: 1.77 m^2 BMI: 24.37 kg/m^2 HR: 65 bpm BP: 171/103 mmHg Summary IV saline contrast injection was negative for a PFO (patent foramen ovale) at rest and post Valsalva . The left ventricle is chamber size (by vol index) is normal (female - LVED vol - 29-61ml/m2). Mild concentric LV hypertrophy. All of the LV segments contract normally . Estimated LVEF by qualitative assessment is normal (60%) . Grade 2 diastolic dysfunction (moderately increased LA pressure). Unable to estimate peak systolic PA pressure; inadequate TR velocity signal. Signature Findings Left Ventricle The left ventricle is chamber size (by vol index) is normal (female - LVED vol - 29-61ml/m2). Mild concentric LV hypertrophy. All of the LV segments contract normally . Estimated LVEF by qualitative assessment is normal (60%) . Grade 2 diastolic dysfunction (moderately increased LA pressure). Left Atrium LA size is mildly enlarged (35-41 ml/m2) . Right Ventricle The right ventricular chamber size and systolic function are within normal limits. Right Atrium RA size is mildly dilated. Atrial Septum IV saline contrast injection was negative for a PFO (patent foramen ovale) at rest and post Valsalva . Aortic Valve Normal AoV structure. There is mild aortic regurgitation. Mitral Valve Mild MV leaflet thickening. Mild mitral annular calcification. Tricuspid Valve TV structure is normal. Unable to estimate peak systolic PA pressure; inadequate TR velocity signal. Pulmonic Valve Normal PV structure and function by limited views and Doppler. Aorta Aortic root size (SInus of Valsalva diameter) is borderline dilated . Pericardium No pericardial effusion is visualized. IVC/SVC/PA/PV/Pleural The estimated RA pressure by IVC dynamics 0-5mmHg . Chambers/Structures Left Atrium LA Dimension: 3.27 cm LA Area: 22.97 cm^2 LA Volume: 72.95 ml LA Vol. Index: 41 ml/m^2 Left Ventricle LVIDd: 4.09 cm LVIDs: 2.64 cm LV Septum Diastolic: 1.21 cm LV PW Diastolic: 1.24 cm LV FS: 35.5 % LVOT Diameter: 2.1 cm Aorta Ao Root S of Catherine.: 3.49 cm Doppler/Quantitative Measurements LVOT Peak Velocity: 0.83 m/s Peak Gradient: 2.76 mmHg Mean Velocity: 0.57 m/s Mean Gradient: 1.48 mmHg LVOT Diameter: 2.1 cm LVOT VTI: 18.09 cm LVOT Area: 3.46 cm^2 LVOT SV:62.62 ml LVOT CO: 4.07 l/min LVOT CI: 2.3 l/min/m^2 Performing Organization Address City/State/Zipcode Phone Number [facility] CBC with platelet count + automated diff (02/09/2018 4:09 AM JUNIOR PROGRAMMER ANALYST)Only the most recent of2 resultswithin the time period is included. WBC 7.0 3.5 - 10.5 K/L [facility] RBC 3.68 (L) 3.93 - 5.22 M/L [facility] Hemoglobin 11.1 (L) 11.2 - 15.7 GM/DL [facility] Hematocrit 34.9 34.1 - 44.9 % [facility] MCV 94.8 79.4 - 94.8 fL [facility] MCH 30.2 25.6 - 32.2 pg [facility] MCHC 31.8 (L) 32.2 - 35.5 GM/DL [facility] RDW 14.4 11.7 - 14.4 % [facility] Platelets 184 150 - 450 K/CU MM [facility] MPV 9.1 (L) 9.4 - 12.3 fL [facility] nRBC 0 0 - 0 /100 WBC [facility] % Neutros 49 % [facility] % Lymphs 34 % [facility] % Monos 16 % [facility] % Eos 1 % [facility] % Baso 0 % [facility] # Neutros 3.41 1.56 - 6.13 K/L [facility] # Lymphs 2.36 1.18 - 3.74 K/L [facility] # Monos 1.09 (H) 0.24 - 0.36 K/L [facility] # Eos 0.10 0.04 - 0.36 K/L [facility] # Baso 0.03 0.01 - 0.08 K/L [facility] Immature Granulocytes-Relative 0 0 - 1 % [facility] Specimen Blood - Arm, Right Performing Organization Address City/State/Zipcode Phone Number [facility] [address] [place] [address] [phone] CENTER Basic Metabolic Panel (02/09/2018 4:09 AM JUNIOR PROGRAMMER ANALYST)Only the most recent of2 resultswithin the time period is included. Sodium 137 136 - 145 meq/L [facility] Potassium 4.2 3.5 - 5.1 meq/L [facility] Chloride 104 98 - 107 meq/L [facility] CO2 28 22 - 29 meq/L [facility] BUN 15 7 - 21 mg/dL [facility] Creatinine 0.82 0.57 - 1.25 mg/dL [facility] Glucose 110 (H) 70 - 105 mg/dL [facility] Calcium 9.0 8.4 - 10.2 mg/dL [facility] EGFR 67Comment: ESTIMATED GFR IS mL/min/1.73 sq m [facility] NOT ACCURATE CREATININE [facility] CLEARANCE IN PREDICTING GLOMERULAR FILTRATION RATE. ESTIMATED GFR IS NOT APPLICABLE FOR DIALYSIS PATIENTS. Specimen Blood - Arm, Right Performing Organization Address City/State/Zipcode Phone Number [facility] [address] [place] [address] [phone] CENTER MR brain without IV contrast (02/08/2018 11:50 AM JUNIOR PROGRAMMER ANALYST) Narrative Performed At FINAL REPORT [employer] MRI brain without contrast 02/08/2018 11:46 AM CLINICAL INDICATION: Stroke Ischemic Stroke Evaluation TECHNIQUE: Multiplanar, multisequence MR imaging of the brain was performed utilizing the following imaging sequences: Axial T1, T2, FLAIR, GRE, and DWI; sagittal and coronal T1-weighted images. COMPARISON: None available FINDINGS: There is a small volume acute nonhemorrhagic infarct in the paramedian left occipital lobe. There is no hematoma, mass, hydrocephalus, or extra-axial collection. There are tiny chronic cortical infarcts in the left middle frontal gyrus, posterior right parietal lobe, and posterior right temporal lobe. Additional small chronic infarcts are scattered throughout both cerebellar hemispheres. There is chronic microvascular ischemia in the supratentorial white matter, deep cano nuclei, and otoniel. There is generalized parenchymal volume loss. Normal appearing flow-voids are present in the major intracranial vascular structures. The sellar and pineal regions are normal. The craniovertebral junction is intact. The orbits, face, and skull base are without worrisome finding. IMPRESSION: 1. Small volume acute nonhemorrhagic left occipital lobe infarct. 2. Chronic ischemic changes as discussed. Signed: Phuc Juares MD Report Verified Date/Time:02/08/2018 12:04:54 Reading Location: [address] Neuro Reading Room Procedure Note Interface, External Ris In - 02/08/2018 12:16 PM JUNIOR PROGRAMMER ANALYST FINAL REPORT MRI brain without contrast 02/08/2018 11:46 AM CLINICAL INDICATION: Stroke Ischemic Stroke Evaluation TECHNIQUE: Multiplanar, multisequence MR imaging of the brain was performed utilizing the following imaging sequences: Axial T1, T2, FLAIR, GRE, and DWI; sagittal and coronal T1-weighted images. COMPARISON: None available FINDINGS: There is a small volume acute nonhemorrhagic infarct in the paramedian left occipital lobe. There is no hematoma, mass, hydrocephalus, or extra-axial collection. There are tiny chronic cortical infarcts in the left middle frontal gyrus, posterior right parietal lobe, and posterior right temporal lobe. Additional small chronic infarcts are scattered throughout both cerebellar hemispheres. There is chronic microvascular ischemia in the supratentorial white matter, deep cano nuclei, and otoniel. There is generalized parenchymal volume loss. Normal appearing flow-voids are present in the major intracranial vascular structures. The sellar and pineal regions are normal. The craniovertebral junction is intact. The orbits, face, and skull base are without worrisome finding. IMPRESSION: 1. Small volume acute nonhemorrhagic left occipital lobe infarct. 2. Chronic ischemic changes as discussed. Signed: Phuc Juares MD Report Verified Date/Time: 02/08/2018 12:04:54 Reading Location: [address] Neuro Reading Room Performing Organization Address City/State/Zipcode Phone Number [employer] MRA neck without IV contrast (02/08/2018 11:50 AM JUNIOR PROGRAMMER ANALYST) Narrative Performed At FINAL REPORT [employer] MRA brain and neck without contrast 02/08/2018 12:03 PM CLINICAL HISTORY: Stroke Ischemic Stroke Evaluation COMPARISON: None available TECHNIQUE: Two- and three-dimensional [id number] MRA images of the intra- and extracranial arterial vasculature was performed, from which maximal intensity projection 3-D reconstructions were created. FINDINGS: MRA neck: There is no vessel occlusion or flow-limiting stenosis. There is no NASCET-quantifiable cervical internal carotid artery stenosis. Flow is antegrade in both vertebral arteries. MRA [place]: There is no vessel occlusion, flow-limiting stenosis, or aneurysm. IMPRESSION: Unremarkable intra- and extracranial MRAs. Signed: Phuc Juares MD Report Verified Date/Time:02/08/2018 12:04:39 Reading Location: [address] Neuro Reading Room Procedure Note Interface, External Ris In - 02/08/2018 12:16 PM JUNIOR PROGRAMMER ANALYST FINAL REPORT MRA brain and neck without contrast 02/08/2018 12:03 PM CLINICAL HISTORY: Stroke Ischemic Stroke Evaluation COMPARISON: None available TECHNIQUE: Two- and three-dimensional [id number] MRA images of the intra- and extracranial arterial vasculature was performed, from which maximal intensity projection 3-D reconstructions were created. FINDINGS: MRA neck: There is no vessel occlusion or flow-limiting stenosis. There is no NASCET-quantifiable cervical internal carotid artery stenosis. Flow is antegrade in both vertebral arteries. MRA [place]: There is no vessel occlusion, flow-limiting stenosis, or aneurysm. IMPRESSION: Unremarkable intra- and extracranial MRAs. Signed: Phuc Juares MD Report Verified Date/Time: 02/08/2018 12:04:39 Reading Location: [address] Neuro Reading Room Performing Organization Address City/State/Zipcode Phone Number [facility] RIS MRA head without IV contrast (02/08/2018 11:50 AM JUNIOR PROGRAMMER ANALYST) Narrative Performed At FINAL REPORT [employer] MRA brain and neck without contrast 02/08/2018 12:03 PM CLINICAL HISTORY: Stroke Ischemic Stroke Evaluation COMPARISON: None available TECHNIQUE: Two- and three-dimensional [id number] MRA images of the intra- and extracranial arterial vasculature was performed, from which maximal intensity projection 3-D reconstructions were created. FINDINGS: MRA neck: There is no vessel occlusion or flow-limiting stenosis. There is no NASCET-quantifiable cervical internal carotid artery stenosis. Flow is antegrade in both vertebral arteries. MRA [place]: There is no vessel occlusion, flow-limiting stenosis, or aneurysm. IMPRESSION: Unremarkable intra- and extracranial MRAs. Signed: Phuc Juares MD Report Verified Date/Time:02/08/2018 12:04:39 Reading Location: [address] Neuro Reading Room Procedure Note Interface, External Ris In - 02/08/2018 12:16 PM JUNIOR PROGRAMMER ANALYST FINAL REPORT MRA brain and neck without contrast 02/08/2018 12:03 PM CLINICAL HISTORY: Stroke Ischemic Stroke Evaluation COMPARISON: None available TECHNIQUE: Two- and three-dimensional [id number] MRA images of the intra- and extracranial arterial vasculature was performed, from which maximal intensity projection 3-D reconstructions were created. FINDINGS: MRA neck: There is no vessel occlusion or flow-limiting stenosis. There is no NASCET-quantifiable cervical internal carotid artery stenosis. Flow is antegrade in both vertebral arteries. MRA [place]: There is no vessel occlusion, flow-limiting stenosis, or aneurysm. IMPRESSION: Unremarkable intra- and extracranial MRAs. Signed: Phuc Juares MD Report Verified Date/Time: 02/08/2018 12:04:39 Reading Location: [facility] [id number] Neuro Reading Room Performing Organization Address City/State/Zipcode Phone Number [facility] RIS Urinalysis w/Microscopic + Reflex to Culture (02/08/2018 7:18 AM JUNIOR PROGRAMMER ANALYST) Color, UA Yellow [facility] Clarity, UA Clear [facility] Specific [place], UA 1.014 1.001 - 1.035 [facility] pH, UA 6.5 5.0 - 8.0 [facility] Protein, UA 10 mg/dL (A) Negative [facility] Glucose, UA Negative Negative [facility] Ketones, UA Negative Negative [facility] Bilirubin, UA Negative Negative [facility] CENTER Blood, UA Trace (A) Negative [facility] Nitrite, UA Negative Negative [facility] Leukocytes, UA Trace (A) Negative [facility] Urobilinogen, UA 0.2 0.2 - 1.0 mg/dL [facility] RBC, UA 9 /HPF [facility] WBC, UA 11 /HPF [facility] Bacteria, UA Moderate [facility] Mucus Few [facility] Squam Epithel, UA <1 /HPF [facility] Hyaline Casts, UA 1 /LPF [facility] Crystals, Urine Rare [facility] Yeast Rare [facility] Specimen Source [facility] Specimen Urine - Urine, Clean Catch Performing Organization Address [facility]/Zipcode Phone Number [address] [phone] [place] Urine culture (02/08/2018 7:18 AM JUNIOR PROGRAMMER ANALYST) Result No growth [facility] Specimen Urine - Urine, Clean Catch Performing Organization Address City/[facility] Phone Number [address] [address] [place] Vitamin B12 and Folate (02/08/2018 3:58 AM JUNIOR PROGRAMMER ANALYST) Vitamin B12 445 213 - 816 pg/mL [facility] Folate 13.3 >=7.0 ng/mL [facility] Specimen Blood Performing Organization Address [facility]j Phone Number [address] [address] [phone] [place] PT/aPTT (02/08/2018 3:58 AM JUNIOR PROGRAMMER ANALYST) Protime 16.4 (H) 11.7 - 14.7 seconds [facility] INR 1.3 <=5.9 [facility] PTT 29.2 22.5 - 36.0 seconds [facility] Specimen Blood Narrative Performed At RECOMMENDED COUMADIN/WARFARIN INR THERAPY [facility] RANGES STANDARD DOSE: 2.0 - 3.0 Includes: PROPHYLAXIS for venous thrombosis, systemic embolization; TREATMENT for venous thrombosis and/or pulmonary embolus. HIGH RISK: Target INR is 2.5-3.5 for patients with mechanical heart valves. Performing Organization Address City/[facility] Centercode Phone Number [address] [phone] [place] ALT (SGPT) (02/08/2018 3:58 AM JUNIOR PROGRAMMER ANALYST) ALT 15 6 - 55 U/L [facility] Specimen Blood Performing Organization Address [facility] Phone Number [address] [address] CENTER AST (SGOT) (02/08/2018 3:58 AM JUNIOR PROGRAMMER ANALYST) AST 17 5 - 34 U/L [facility] Specimen Blood Performing Organization Address [facility] Phone Number [address] [phone] [place] Troponin I (02/08/2018 12:01 AM JUNIOR PROGRAMMER ANALYST)Only the most recent of2 resultswithin the time period is included. Troponin I 0.04 (H) 0.00 - 0.03 ng/mL [facility] Specimen Blood Performing Organization Address [facility] Phone Number [address] [phone] [place] ECG 12 lead (02/07/2018 8:28 PM JUNIOR PROGRAMMER ANALYST) Narrative Performed At Ventricular Rate 66 BPM GE MUSE Atrial Rate 66 BPM P-R Interval 206 ms QRS Duration 86 ms Q-T Interval 418 ms QTC Calculation(Bazett) 438 ms P [place] 86 degrees R [place] 21 degrees T [place] -1 degrees Sinus rhythm with Premature atrial complexes Nonspecific ST abnormality Abnormal ECG No previous ECGs available Confirmed by MD Riaz, Pietro ([id number]) on 02/08/2018 10:51:12 AM Procedure Note Interface, External Ris In - 02/08/2018 10:51 AM JUNIOR PROGRAMMER ANALYST Ventricular Rate 66 BPM Atrial Rate 66 BPM P-R Interval 206 ms QRS Duration 86 ms Q-T Interval 418 ms QTC Calculation(Bazett) 438 ms P [place] 86 degrees R [place] 21 degrees T [place] -1 degrees Sinus rhythm with Premature atrial complexes Nonspecific ST abnormality Abnormal ECG No previous ECGs available Confirmed by MD Mello Roberto ([id number]) on 02/08/2018 10:51:12 AM Performing Organization Address City/State/Zipcode Phone Number GE MUSE TSH/Free T4 If Indicated (02/07/2018 2:41 PM JUNIOR PROGRAMMER ANALYST) TSH 2.44 0.35 - 4.94 uIU/mL [facility] Specimen Blood - Arm, Left Performing Organization Address City/[facility]ode Phone Number [address] [address] [place] Hemoglobin A1c (02/07/2018 2:41 PM JUNIOR PROGRAMMER ANALYST) Hemoglobin A1C 5.8 4.3 - 6.1 % [facility] Specimen Blood - Arm, Left Performing Organization Address [facility] Phone Number [address] [address] [place] Fasting lipid panel (02/07/2018 2:41 PM JUNIOR PROGRAMMER ANALYST) Triglycerides 70 mg/dL [facility] Cholesterol 254 mg/dL [facility] HDL 86 mg/dL [facility] LDL Calculated 154 mg/dL [facility] Specimen Blood - Arm, Left Narrative Performed At Triglyceride Reference Range: [facility] Low Risk <150 [id number] High Risk 200-499 Very High Risk>=500 Cholesterol Reference Range: Low Risk <200 Vyxfeptmxn178-947 High Risk>240 HDL Cholesterol Reference Range: Low Risk >=60 High Risk <40 LDL Cholesterol Reference Range: Optimal<100 Near Raarrtn035-522 Dpzdayzcer848-997 Zuxo543-909 Very High >=190 Fasting Performing Organization Address [facility]/Zipcode Phone Number [address] [address] [phone] [place] after 02/12/2017 Insurance Payer Benefit Plan / Group Subscriber ID Type Phone Address TONIA PAYANANPLUS O ALL xxxxxxxxx Maps Contracted ([place]) [place] [address]
--- OUTSIDE RECORDS SUMMARY | 2018-02-13 15:40 | XMS REPORT ---
[...] Date Date Calcium + D + K [facility] [id number] 750-500-40 Active 1 tablet MG-UNT-MCG with meals Orally Twice a day Mobic [facility] 80999023501 7.5 MG Orally Active 1 tablet Once a day Lisinopril [facility] 47424169777 20 mg Orally Active 1 tablet Twice daily Magnesium Oxide [facility] [address]-40 400 MG Orally Active 1 tablet Once a day (taking prn) Fish Oil [facility] [address]-21 1000 MG Orally Active 1 capsule Once a day (VERIFY DOSE NEXT VISIT; she is unsure of dose) Fosamax [facility] 69132778744 70 MG Orally Active 1 tablet Vitamin E [facility] 05179132238 200 UNIT Orally Active 1 capsule Once a day Metoprolol [facility] 76145566510 25 mg Orally Active 1 tablet Succinate ER Once a day Acidophilus [facility] [id number] - Orally Active not Probiotic Blend defined Results No Known Results Summary Purpose eClinicalWorks Submission
--- OUTSIDE RECORDS SUMMARY | 2018-02-13 15:40 | XMS REPORT ---
[...] Status Dosage System Date Date Fish Oil [facility] [address]-20 1000 MG Orally Active 1 capsule Once a day (OTC) Lisinopril [facility] 31056813010 20 mg Orally Active 1 tablet Twice daily Vitamin C [facility] [address] Orally Once a Active 1 tablet day Vitamin E [facility] 16966993794 200 UNIT Orally Active 1 capsule Once a day Magnesium Oxide [facility] 37901554110 400 MG Orally Active 1 tablet Once a day (taking prn) Calcium + D + K [facility] 82507567798 750-500-40 Active 1 tablet MG-UNT-MCG with meals Orally Twice a day Fosamax [facility] 38391175312 70 MG Orally Active 1 tablet Mobic [facility] 47108497431 7.5 MG Orally Active 1 tablet Once a day Aspirin [facility] 14476184853 81 MG Orally Active 1 tablet Once daily (OTC) Acidophilus [facility] [address] - Orally Once Active 1 capsule Probiotic Blend daily (Probotics --OTC) Metoprolol [facility] 95573320584 25 mg Orally Active 1 tablet Succinate ER Once a day Results No Known Results Summary Purpose eClinicalWorks Submission
--- OUTSIDE RECORDS SUMMARY | 2018-02-13 15:40 | XMS REPORT ---
:1935 Author Organization [facility] Address [address] [place] [address] Care Team Providers Name Role Phone CELESTE CANNON Unavailable Unavailable Problems This patient has no known problems. Allergies, Adverse Reactions, Alerts This patient has no known allergies or adverse reactions. Medications This patient has no known medications. Results Test Description Test Time Test Comments Text Results Atomic Results Result Comments POCT-GLUCOSE METER 2018-02-09 12:51:00 Test Item Value Reference Range Comments POC-GLUCOSE METER (BEAKER) (test 87 mg/dL 70-110 TESTED AT [address] amhh=0190) [place] [address] POCT-GLUCOSE [id number] 10:54:00 Test Item Value Reference Range Comments POC-GLUCOSE METER (BEAKER) 129 mg/dL 70-110 TESTED AT [address] (test ijzb=7792) [place] [address] POCT-GLUCOSE [id number] 07:54:00 Test Item Value Reference Range Comments POC-GLUCOSE METER (BEAKER) 120 mg/dL 70-110 TESTED AT [address] (test syro=4151) [place] [address] BASIC METABOLIC [id number] 04:41:00 Test Item Value Reference Range Comments SODIUM (BEAKER) (test 137 meq/L 136-145 olbj=675) POTASSIUM (BEAKER) (test 4.2 meq/L 3.5-5.1 ciqw=613) CHLORIDE (BEAKER) (test 104 meq/L 98-107 indz=092) CO2 (BEAKER) (test 28 meq/L 22-29 cxzb=648) BLOOD UREA NITROGEN 15 mg/dL 7-21 (BEAKER) (test vosy=690) CREATININE (BEAKER) (test 0.82 mg/dL 0.57-1.25 bdwf=869) GLUCOSE RANDOM (BEAKER) 110 mg/dL 70-105 (test cnxl=412) CALCIUM (BEAKER) (test 9.0 mg/dL 8.4-10.2 opqe=241) EGFR (BEAKER) (test 67 mL/min/1.73 sq m ESTIMATED GFR IS NOT twfo=3442) ACCURATE CREATININE CLEARANCE IN PREDICTING GLOMERULAR FILTRATION RATE. ESTIMATED GFR IS NOT APPLICABLE FOR DIALYSIS PATIENTS. CBC W/PLT COUNT & AUTO [id number] 04:18:00 Test Item Value Reference Range Comments WHITE BLOOD CELL COUNT (BEAKER) (test uksf=025) 7.0 K/ L 3.5-10.5 RED BLOOD CELL COUNT (BEAKER) (test pvqj=843) 3.68 M/ L 3.93-5.22 HEMOGLOBIN (BEAKER) (test sgfh=948) 11.1 GM/DL 11.2-15.7 HEMATOCRIT (BEAKER) (test xsrv=759) 34.9 % 34.1-44.9 MEAN CORPUSCULAR VOLUME (BEAKER) (test xtrf=630) 94.8 fL 79.4-94.8 MEAN CORPUSCULAR HEMOGLOBIN (BEAKER) (test 30.2 pg 25.6-32.2 wsnm=567) MEAN CORPUSCULAR HEMOGLOBIN CONC (BEAKER) (test 31.8 GM/DL 32.2-35.5 tuer=016) RED CELL DISTRIBUTION WIDTH (BEAKER) (test 14.4 % 11.7-14.4 dszr=161) PLATELET COUNT (BEAKER) (test zbza=753) 184 K/CU MM 150-450 MEAN PLATELET VOLUME (BEAKER) (test uwza=671) 9.1 fL 9.4-12.3 NUCLEATED RED BLOOD CELLS (BEAKER) (test 0 /100 WBC 0-0 zpzt=588) NEUTROPHILS RELATIVE PERCENT (BEAKER) (test 49 % hqav=214) LYMPHOCYTES RELATIVE PERCENT (BEAKER) (test 34 % hwvz=012) MONOCYTES RELATIVE PERCENT (BEAKER) (test 16 % vnpu=498) EOSINOPHILS RELATIVE PERCENT (BEAKER) (test 1 % ikcv=714) BASOPHILS RELATIVE PERCENT (BEAKER) (test 0 % flpx=510) NEUTROPHILS ABSOLUTE COUNT (BEAKER) (test 3.41 K/ L 1.56-6.13 pije=090) LYMPHOCYTES ABSOLUTE COUNT (BEAKER) (test 2.36 K/ L 1.18-3.74 asne=282) MONOCYTES ABSOLUTE COUNT (BEAKER) (test 1.09 K/ L 0.24-0.36 sxcr=307) EOSINOPHILS ABSOLUTE COUNT (BEAKER) (test 0.10 K/ L 0.04-0.36 tcey=204) BASOPHILS ABSOLUTE COUNT (BEAKER) (test 0.03 K/ L 0.01-0.08 jptc=545) IMMATURE GRANULOCYTES-RELATIVE PERCENT (BEAKER) 0 % 0-1 (test ubxc=3015) POCT-GLUCOSE [id number] 22:23:00 Test Item Value Reference Range Comments POC-GLUCOSE METER (BEAKER) 109 mg/dL 70-110 TESTED AT [facility] [address] [facility] (test rzah=0792) [facility] [address] MR, MRA, BRAIN, WITHOUT [id number] 12:04:00Reason for exam:-> Ischemic Stroke EvaluationFINAL REPORT MRA brain and neck without contrast 02/08/2018 12:03 PM CLINICALHISTORY: StrokeIschemic Stroke Evaluation COMPARISON: None available TECHNIQUE: Two- and three- dimensional [id number]-[id number] MRA images of the intra- and extracranial arterial vasculature was performed, from which maximal intensity projection 3-D reconstructions were created. FINDINGS: MRA neck: There isno vessel occlusion or flow-limiting stenosis. There is no NASCET-quantifiable cervical internal carotid artery stenosis. Flow is antegrade in both vertebral arteries. MRA point lay ira of [place]: There is novessel occlusion, flow-limiting stenosis, or aneurysm. IMPRESSION: Unremarkable intra- and extracranial MRAs. Signed: Phuc Juares Verified Date/Time: 02/08/2018 12:04:39 Reading Location: [address] Neuro Reading Room MR, MRA, NECK, WITHOUT IV [id number] 12:04: 00Reason for exam:->Ischemic Stroke EvaluationFINAL REPORT MRA brain and neck without contrast 02/08/2018 12:03 PM CLINICALHISTORY : StrokeIschemic Stroke Evaluation COMPARISON: None available TECHNIQUE: Two- and three-dimensional [id number]-td-[id number] MRA images of the intra- and extracranial arterial vasculature was performed, from which maximal intensity projection 3-D reconstructions were created. FINDINGS: MRA neck: There isno vessel occlusion or flow-limiting stenosis. There is no NASCET-quantifiable cervical internal carotid artery stenosis. Flow is antegrade in both vertebral arteries. MRA point lay ira of [place]: There is novessel occlusion, flow-limiting stenosis, or aneurysm. IMPRESSION: Unremarkable intra- and extracranial MRAs. Signed: Phuc uJares Verified Date/Time: 02/08/2018 12:04:39 Reading Location: [address] Neuro Reading Room MR, BRAIN, WITHOUT [id number] 12:04:00Reason for exam:->Ischemic Stroke EvaluationFINAL REPORT MRI brain without contrast 02/08/2018 11:46 AM CLINICAL INDICATION: StrokeIschemic Stroke Evaluation TECHNIQUE: Multiplanar, multisequence MR imaging of the brain was performed utilizing the following imaging sequences: Axial T1, T2, FLAIR, GRE, and DWI; sagittal and coronal T1-weighted images. COMPARISON: None available FINDINGS: There is a small volume acute nonhemorrhagic infarct in the paramedian left occipital lobe. There is no hematoma, mass, hydrocephalus,or extra-axial collection. There are tiny chronic cortical infarcts in the left middle frontal gyrus, posterior right parietal lobe, and posterior right temporal lobe. Additional small chronic infarctsare scattered throughout both cerebellar hemispheres. There is chronic microvascular ischemia in thesupratentorial white matter, deep cano nuclei, and otoniel. There is generalized parenchymal volume loss. Normal appearing flow-voids are present in the major intracranial vascular structures. The sellarand pineal regions are normal. The craniovertebral junction is intact. The orbits, face, and skull base are without worrisome finding. IMPRESSION: 1. 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 Chronic ischemic changes as discussed. Signed: Phuc Juares Verified Date/Time: 02/08/2018 12:04:54 Reading Location: [address] Neuro Reading Room HEMOGLOBIN [id number] 08:56:00 Test Item Value Reference Range Comments HEMOGLOBIN A1C (BEAKER) (test savb=111) 5.8 % 4.3-6.1 POCT-GLUCOSE [id number] 08:11:00 Test Item Value Reference Range Comments POC-GLUCOSE METER (BEAKER) 115 mg/dL 70-110 TESTED AT [facility] [address] [facility] (test ynas=9635) [facility] [address] URINALYSIS W/ REFLEX URINE [id number] 08:07:00 Test Item Value Reference Range Comments COLOR (BEAKER) (test eeii=211) Yellow CLARITY (BEAKER) (test ycqd=633) Clear SPECIFIC GRAVITY UA (BEAKER) (test xdkf=615) 1.014 1.001-1.035 PH UA (BEAKER) (test fkyq=981) 6.5 5.0-8.0 PROTEIN UA (BEAKER) (test yzmc=959) 10 mg/dL Negative GLUCOSE UA (BEAKER) (test vxyh=725) Negative Negative KETONES UA (BEAKER) (test znco=728) Negative Negative BILIRUBIN UA (BEAKER) (test dsdl=410) Negative Negative BLOOD UA (BEAKER) (test hmwo=443) Trace Negative NITRITE UA (BEAKER) (test jiwn=906) Negative Negative LEUKOCYTE ESTERASE UA (BEAKER) (test egec=112) Trace Negative UROBILINOGEN UA (BEAKER) (test oxom=386) 0.2 mg/dL 0.2-1.0 RBC UA (BEAKER) (test ctph=310) 9 /HPF WBC UA (BEAKER) (test fuge=789) 11 /HPF BACTERIA (BEAKER) (test rosh=131) Moderate MUCUS (BEAKER) (test abki=6669) Few SQUAMOUS EPITHELIAL (BEAKER) (test vmgp=370) < /HPF HYALINE CASTS (BEAKER) (test lmhu=997) 1 /LPF CRYSTALS, URINE (BEAKER) (test dqid=2359) Rare YEAST (BEAKER) (test vbvv=9099) Rare SOURCE(BEAKER) (test czlf=2547) VITAMIN B12 AND [id number] 05:11:00 Test Item Value Reference Range Comments VITAMIN B12 (BEAKER) (test whpb=479) 445 pg/mL 213-816 FOLATE (BEAKER) (test xavl=507) 13.3 ng/mL >=7.0 BASIC METABOLIC [id number] 04:42:00 Test Item Value Reference Range Comments SODIUM (BEAKER) (test 140 meq/L 136-145 xeyc=766) POTASSIUM (BEAKER) (test 3.8 meq/L 3.5-5.1 fqdy=656) CHLORIDE (BEAKER) (test 106 meq/L 98-107 xrox=852) CO2 (BEAKER) (test 26 meq/L 22-29 ceok=545) BLOOD UREA NITROGEN 15 mg/dL 7-21 (BEAKER) (test jbtj=688) CREATININE (BEAKER) (test 0.77 mg/dL 0.57-1.25 lpzi=144) GLUCOSE RANDOM (BEAKER) 119 mg/dL 70-105 (test fbsv=876) CALCIUM (BEAKER) (test 9.0 mg/dL 8.4-10.2 pdks=714) EGFR (BEAKER) (test 72 mL/min/1.73 sq m ESTIMATED GFR IS NOT vhpi=0545) ACCURATE CREATININE CLEARANCE IN PREDICTING GLOMERULAR FILTRATION RATE. ESTIMATED GFR IS NOT APPLICABLE FOR DIALYSIS PATIENTS. ALT (SGPT)2018-02-08 04:42:00 Test Item Value Reference Range Comments ALT (SGPT) (BEAKER) (test rerw=503) 15 U/L 6-55 AST (SGOT)2018-02-08 04:42:00 Test Item Value Reference Range Comments AST (SGOT) (BEAKER) (test jctk=799) 17 U/L 5-34 [id number] 04:30:00 Test Item Value Reference Range Comments PROTIME (BEAKER) (test iqyb=758) 16.4 seconds 11.7-14.7 INR (BEAKER) (test uqdv=288) 1.3 <=5.9 PARTIAL THROMBOPLASTIN TIME (BEAKER) (test 29.2 seconds 22.5-36.0 kkfm=568) RECOMMENDED COUMADIN/WARFARIN INR THERAPY RANGESSTANDARD DOSE: 2.0 - 3.0 Includes: PROPHYLAXIS forvenous thrombosis, systemic embolization; TREATMENT for venous thrombosis and/or pulmonary embolus.HIGH RISK: Target INR is 2.5-3.5 for patients with mechanical heart valves.CBC W/PLT COUNT & AUTO [id number] 04:15:00 Test Item Value Reference Range Comments WHITE BLOOD CELL COUNT (BEAKER) (test njmv=306) 6.6 K/ L 3.5-10.5 RED BLOOD CELL COUNT (BEAKER) (test woob=484) 3.69 M/ L 3.93-5.22 HEMOGLOBIN (BEAKER) (test xhtp=443) 11.0 GM/DL 11.2-15.7 HEMATOCRIT (BEAKER) (test mhou=815) 34.7 % 34.1-44.9 MEAN CORPUSCULAR VOLUME (BEAKER) (test xgzl=280) 94.0 fL 79.4-94.8 MEAN CORPUSCULAR HEMOGLOBIN (BEAKER) (test 29.8 pg 25.6-32.2 vuuv=211) MEAN CORPUSCULAR HEMOGLOBIN CONC (BEAKER) (test 31.7 GM/DL 32.2-35.5 znle=176) RED CELL DISTRIBUTION WIDTH (BEAKER) (test 14.6 % 11.7-14.4 tsrt=390) PLATELET COUNT (BEAKER) (test seyr=722) 205 K/CU MM 150-450 MEAN PLATELET VOLUME (BEAKER) (test qhyu=672) 9.3 fL 9.4-12.3 NUCLEATED RED BLOOD CELLS (BEAKER) (test 0 /100 WBC 0-0 ulvv=844) NEUTROPHILS RELATIVE PERCENT (BEAKER) (test 51 % uxjt=308) LYMPHOCYTES RELATIVE PERCENT (BEAKER) (test 31 % ypzk=313) MONOCYTES RELATIVE PERCENT (BEAKER) (test 16 % mjuq=289) EOSINOPHILS RELATIVE PERCENT (BEAKER) (test 1 % dtjd=326) BASOPHILS RELATIVE PERCENT (BEAKER) (test 1 % hymz=885) NEUTROPHILS ABSOLUTE COUNT (BEAKER) (test 3.40 K/ L 1.56-6.13 txse=145) LYMPHOCYTES ABSOLUTE COUNT (BEAKER) (test 2.05 K/ L 1.18-3.74 rkyx=226) MONOCYTES ABSOLUTE COUNT (BEAKER) (test 1.07 K/ L 0.24-0.36 edqx=547) EOSINOPHILS ABSOLUTE COUNT (BEAKER) (test 0.05 K/ L 0.04-0.36 qghn=907) BASOPHILS ABSOLUTE COUNT (BEAKER) (test 0.03 K/ L 0.01-0.08 ihtj=752) IMMATURE GRANULOCYTES-RELATIVE PERCENT (BEAKER) 1 % 0-1 (test uqnt=8178) TROPONIN [id number] 00:49:00 Test Item Value Reference Range Comments TROPONIN I (BEAKER) (test ujvk=175) 0.04 ng/mL 0.00-0.03 POCT-GLUCOSE [id number] 00:04:00 Test Item Value Reference Range Comments POC-GLUCOSE METER (BEAKER) 134 mg/dL 70-110 TESTED AT [facility] [address] [facility] (test csts=8958) [place] [address] TROPONIN [id number] 17:59:00 Test Item Value Reference Range Comments TROPONIN I (BEAKER) (test dwdb=100) 0.05 ng/mL 0.00-0.03 TSH/FREE T4 IF [id number] 15:42:00 Test Item Value Reference Range Comments THYROID STIMULATING HORMONE (BEAKER) (test 2.44 uIU/mL 0.35-4.94 ycmo=579) LIPID [id number] 15:22:00 Test Item Value Reference Range Comments TRIGLYCERIDES (BEAKER) (test lvgg=518) 70 mg/dL CHOLESTEROL (BEAKER) (test kovp=080) 254 mg/dL HDL CHOLESTEROL (BEAKER) (test lekb=572) 86 mg/dL LDL CHOLESTEROL CALCULATED (BEAKER) (test 154 mg/dL jbki=173) Triglyceride Reference Range: Low Risk <150 Borderline 150- 199 High Risk 200-499 Very High Risk >=500Cholesterol Reference Range: Low Risk <200 Borderline 200-239 High Risk > 240HDL Cholesterol Reference Range: Low Risk >=60 High Risk <40LDL Cholesterol Reference Range: Optimal <100 Near Optimal 100-129 Borderline 130-159 High 160-189 Very High >=190 Fasting
--- OUTSIDE RECORDS SUMMARY | 2018-02-13 15:40 | XMS REPORT ---
[...] Status Dosage System Date Date Vitamin C [facility] [address] Orally Once a Active 1 tablet day Magnesium Oxide [facility] 19932489007 400 MG Orally Active 1 tablet Once a day (taking prn) Fish Oil [facility] 14535667148 1000 MG Orally Active 1 capsule Once a day (OTC) Vitamin E [facility] 24992337974 200 UNIT Orally Active 1 capsule Once a day Calcium + D + K [facility] 58016843396 750-500-40 Active 1 tablet MG-UNT-MCG with meals Orally Twice a day Lisinopril [facility] 36127443455 20 mg Orally Inactive 1 tablet Twice daily Fosamax [facility] 82330113872 70 MG Orally Active 1 tablet Aspirin [facility] 74437367533 81 MG Orally Active 1 tablet Once daily (OTC) Mobic [facility] 90934117237 7.5 MG Orally Active 1 tablet Once a day Acidophilus [facility] [address] - Orally Once Active 1 capsule Probiotic Blend daily (Probotics --OTC) Metoprolol [facility] 93103484300 50 MG Orally Active 1 tablet Succinate ER Once a day Results No Known Results Summary Purpose eClinicalWorks Submission
--- OUTSIDE RECORDS SUMMARY | 2018-02-13 15:40 | XMS REPORT ---
[...] End Status Dosage System Date Date Acidophilus [facility] [id number] - Orally Active not Probiotic Blend defined Metoprolol [facility] 69786860614 25 mg Orally Active 1 tablet Succinate ER Once a day Fish Oil [facility] 66650948524 1000 MG Orally Active 1 capsule Once a day (VERIFY DOSE NEXT VISIT; she is unsure of dose) Fosamax [facility] 44983139810 70 MG Orally Active 1 tablet Mobic [facility] 66003011199 7.5 MG Orally Active 1 tablet Once a day Calcium + D + K [facility] 07586588621 750-500-40 Active 1 tablet MG-[id number]-MCG with meals Orally Twice a day Magnesium Oxide [facility] 97288406113 400 MG Orally Active 1 tablet Once a day (taking prn) Lisinopril [facility] 84672347782 20 mg Orally Active 1 tablet Twice daily Vitamin E ND 81893078949 200 UNIT Orally Active 1 capsule Once a day Results No Known Results Summary Purpose eClinicalWorks Submission
--- OUTSIDE RECORDS SUMMARY | 2018-02-13 15:40 | XMS REPORT ---
[...] Status Dosage System Date Date Magnesium Oxide [facility] 18330685609 400 MG Orally Active 1 tablet Once a day (taking prn) Metoprolol [facility] 05736772928 25 mg Orally Active 1 tablet Succinate ER Once a day Mobic [facility] 77243446278 7.5 MG Orally Active 1 tablet Once a day Acidophilus [facility] 76456530870 - Orally Active not Probiotic Blend defined Calcium + D + K [facility] 25271409125 750-500-40 Active 1 tablet MG-UNT-MCG with meals Orally Twice a day Fish Oil [facility] 24934600855 1000 MG Orally Active 1 capsule Once a day (VERIFY DOSE NEXT VISIT; she is unsure of dose) Lisinopril [facility] 94230262028 20 mg Orally Active 1 tablet Twice daily Fosamax [facility] 61865609428 70 MG Orally Active 1 tablet Vitamin E [facility] 98005589992 200 UNIT Orally Active 1 capsule Once a day Results No Known Results Summary Purpose eClinicalWorks Submission
[2018-02-13] MEDS ORDERED: CYCLOBENZAPRINE 10 MG TAB ONE (17:26)
[2018-02-13] MEDS ORDERED: TRAMADOL HCL 50 MG TAB ONE (17:26)
--- NOTE | 2018-02-13 18:00 | EDPHYS ---
Physician Documentation [facility] Name: Arelis Bowden Age: 82 yrs Sex: Female : 1935 Arrival Date: 02/13/2018 Time: 15:38 Bed 14 Private MD: Noreen Baker ED Physician Oj Han Historical: - Allergies: 02/13 15:58 Codeine; ph 15:58 Sulfa (Sulfonamide Antibiotics); ph - PMHx: 15:58 Hypertension; CVA; ph - PSHx: 15:58 collapsed lung; ph - Immunization history:: Adult Immunizations up to date. Vital Signs: 16:13 BP 214 / 99; Pulse 71; Resp 18; Temp 97.5; Pulse Ox 96% on R/A; Weight 70.31 kg; Height ph 5 ft. 6 in. (167.64 cm); Pain 6/10; 17:12 BP 178 / 85; Pulse 61; Resp 18; Pulse Ox 95% on R/A; aj1 18:13 BP 174 / 83; Pulse 69; Resp 18; Pulse Ox 100% on R/A; aj1 19:27 BP 175 / 78; Pulse 56; Resp 16; Pulse Ox 95% on R/A; jb4 16:13 Body Mass Index 25.02 (70.31 kg, 167.64 cm) ph MDM: 17:59 Patient medically screened. kdr 02/13 16:58 Order name: VS Recheck; Complete Time: 17:23 kdr Administered Medications: 17:23 Drug: Flexeril 10 mg Route: PO; aj1 18:14 Follow up: Response: No adverse reaction aj1 17:24 Drug: traMADol 50 mg Route: PO; aj1 18:14 Follow up: Response: No adverse reaction aj1 Disposition: 02/13/18 17:59 Discharged to Home. Impression: Acute myofascial pain, Upper back/rhomboid pain. - Condition is Stable. - Discharge Instructions: Muscle Pain, Adult, Muscle Cramps and Spasms, [id number], Muscle Strain, [id number]-md-[id number]. - Prescriptions for Tramadol 50 mg Oral Tablet - take 1 tablet by ORAL route every 8 hours as needed; 12 tablet. Cyclobenzaprine 5 mg Oral Tablet - take 1 tablet by ORAL route 3 times per day As needed; 15 tablet. - Medication Reconciliation Form, Thank You Letter form. - Follow up: Noreen Baker MD; When: 2 - 3 days; Reason: If symptoms return, Further diagnostic work-up, Recheck today's complaints, Continuance of care, Re-evaluation by your physician. - Problem is new. - Symptoms have improved. Addendum: 02/20/2018 05:57 Addendum: CC: right shoulder pain HPI: The patient states that she awoke yesterday with k right shoulder pain. She took some OTC medication for it and it has not resolved. Last weekend, she had an apparent stroke with her only defect being partial loss of visual field . Addendum: ROS: Const: No fever, chills or weight loss, Eyes: no visual changes or c/o, Neck: no pain or injury, CV: no CP or palpitations, Resp: no SOB, cough or congestion, Abd: no n/v/d or pain, Back: no pain or injury, : no pain or bleeding, MS/Ext: no injury, swelling, tingling, she does have pain to the posterior aspect of her right shoulder Skin: no lacerations, pain, injury, skin turgor good, Neuro: CN grossly intact and no other deficits, Psych: Appropriate for age, Allergy/Immunology: no rashes or other s/s, Endo: no evidence of polyuria, polydipsia, temperature control or other s/s . Addendum: Exam: Const: WDWN WF in NAD, Head/Face: no injury, pain or deformity, Eyes: PERRLA, ENT: no pain, injury or bleeding, Neck: no pain, injury or deformity, full ROM, Chest/Axilla: No pain, injury or deformity, CV: no rubs, gallops, murmurs, regular rate, Resp: CTAB, regular rate, Abd/GI: soft, NT, BS present in all quads and normal, Back: no injury or deformity, full ROM, MS/Extremity: no injury or deformity, FROM, distal pulses good and equal, she has some mild pain to her right posterior shoulder which is mildly worse with palpation. Skin: no rashes, ecchymosis skin turgor good, Neuro: CN grossly intact, no other neuro deficits beyond those known from her prior stroke which is currently unchanged Psych: appropriate for age, no SI/HI, no depression . Addendum: MDM (Discharge) All VS and nursing notes reviewed. The patient was counseled on the results and need for follow-up. Her pain was mildly improved. The patient was discharged in stable condition. They were happy with the care they received and the plan for d/c and follow-up. . Signatures: Renita Tellez RN RN aj1 Oj Han MD MD kdr Malaika Shaw RN RN Luis Antonio Matos RN RN jb4 Corrections: (The following items were deleted from the chart) 02/13 19:29 17:59 02/13/2018 17:59 Discharged to Home. Impression: Acute myofascial pain; Upper jb4 back/rhomboid pain. Condition is Stable. Forms are Medication Reconciliation Form, Thank You Letter, Antibiotic Education, Prescription Opioid Use. Follow up: Noreen Baker; When: 2 - 3 days; Reason: If symptoms return, Further diagnostic work-up, Recheck today's complaints, Continuance of care, Re-evaluation by your physician. Problem is new. Symptoms have improved. kdr
--- NOTE | 2018-02-13 18:00 | ER ---
Nurse's Notes [facility] Name: Arelis Bowden Age: 82 yrs Sex: Female : 1935 Arrival Date: 02/13/2018 Time: 15:38 Bed 14 Private MD: Noreen Baker Diagnosis: Acute myofascial pain;Upper back/rhomboid pain Presentation: 02/13 16:10 Presenting complaint: Patient states: " I had a stroke last Sat and was sent to [facility]. Yesterday morning when I woke up my R shoulder was hurting, I took some aspirin and it felt a little better this morning and then this afternoon it started really hurting again." Reports that only deficit from CVA is loss of peripheral vision in R eye, denies chest pain, weakness, or dizziness, burlap man equal krystle. Transition of care: patient was not received from another setting of care. Onset of symptoms was February 13, 2018. Risk Assessment: Do you want to hurt yourself or someone else? Patient reports no desire to harm self or others. Care prior to arrival: None. 16:10 Acuity: DURGA 3 ph 16:10 Method Of Arrival: Ambulatory Historical: - Allergies: 15:58 Codeine; ph 15:58 Sulfa (Sulfonamide Antibiotics); ph - PMHx: 15:58 Hypertension; CVA; ph - PSHx: 15:58 collapsed lung; ph - Immunization history:: Adult Immunizations up to date. Screenin:30 Abuse screen: Denies threats or abuse. Denies injuries from another. Nutritional aj1 screening: No deficits noted. Tuberculosis screening: No symptoms or risk factors identified. Assessment: 16:30 General: Appears in no apparent distress. comfortable, Behavior is calm, cooperative, aj1 appropriate for age. Pain: Complains of pain in right scapular area Pain does not radiate. Pain currently is 4 out of 10 on a pain scale. Neuro: Level of Consciousness is awake, alert, obeys commands. Cardiovascular: Patient's skin is warm and dry. Respiratory: Airway is patent Respiratory effort is even, unlabored, Respiratory pattern is regular, symmetrical. GI: No signs and/or symptoms were reported involving the gastrointestinal system. : No signs and/or symptoms were reported regarding the genitourinary system. EENT: No signs and/or symptoms were reported regarding the EENT system. Derm: No signs and/or symptoms reported regarding the dermatologic system. Skin is pink, warm \\T\\ dry. normal. Musculoskeletal: Circulation, motion, and sensation intact. Range of motion: intact in all extremities. 17:30 Reassessment: Patient appears in no apparent distress at this time. No changes from aj1 previously documented assessment. Patient and/or family updated on plan of care and expected duration. Pain level reassessed. Patient is alert, oriented x 3, equal unlabored respirations, skin warm/dry/pink. 18:13 Reassessment: Patient appears in no apparent distress at this time. No changes from aj1 previously documented assessment. Patient and/or family updated on plan of care and expected duration. Pain level reassessed. Patient is alert, oriented x 3, equal unlabored respirations, skin warm/dry/pink. 18:28 Reassessment: Discharge pending Dr. Han coming to talk to patient. aj1 19:27 Reassessment: Patient appears in no apparent distress at this time. Patient and/or jb4 family updated on plan of care and expected duration. Pain level reassessed. Patient is alert, oriented x 3, equal unlabored respirations, skin warm/dry/pink. Discussed D/c, F/u with pt and pt's family, denies questions or concerns. Vital Signs: 16:13 BP 214 / 99; Pulse 71; Resp 18; Temp 97.5; Pulse Ox 96% on R/A; Weight 70.31 kg; Height ph 5 ft. 6 in. (167.64 cm); Pain 6/10; 17:12 BP 178 / 85; Pulse 61; Resp 18; Pulse Ox 95% on R/A; aj1 18:13 BP 174 / 83; Pulse 69; Resp 18; Pulse Ox 100% on R/A; aj1 19:27 BP 175 / 78; Pulse 56; Resp 16; Pulse Ox 95% on R/A; jb4 16:13 Body Mass Index 25.02 (70.31 kg, 167.64 cm) ph ED Course: 15:38 Patient arrived in ED. sb2 15:39 Noreen Baker MD is Private Physician. sb2 15:58 Triage completed. ph 16:14 Arm band placed on Patient placed in an exam room, on a stretcher, in view of staff ph members. 16:30 Patient has correct armband on for positive identification. Bed in low position. Call aj1 light in reach. Side rails up X 1. 16:30 No provider procedures requiring assistance completed. aj1 16:37 Oj Han MD is Attending Physician. kdr 17:11 Renita Tellez, RN is Primary Nurse. aj1 17:58 Noreen Baker MD is Referral Physician. kdr 18:14 Patient did not have IV access during this emergency room visit. aj1 Administered Medications: 17:23 Drug: Flexeril 10 mg Route: PO; aj1 18:14 Follow up: Response: No adverse reaction aj1 17:24 Drug: traMADol 50 mg Route: PO; aj1 18:14 Follow up: Response: No adverse reaction aj1 Outcome: 17:59 Discharge ordered by MD. kdr 19:27 Discharged to home ambulatory, with family. jb4 19:27 Condition: stable 19:27 Discharge instructions given to patient, family, Instructed on discharge instructions, follow up and referral plans. medication usage, Demonstrated understanding of instructions, follow-up care, medications, Prescriptions given X 2. 19:29 Patient left the ED. jb4 Signatures: Renita Tellez, RN RN aj1 Oj Han MD MD kdr Malaika Shaw RN RN Luis Antonio Matos RN RN jb4 Neli Smith sb2 Corrections: (The following items were deleted from the chart) 15:55 Presenting complaint: states: " We think he's having another stroke." Reports slurred speech, AMS, and loss of coordination, symptom onset approx 1445, reports hx of stroke 7 months ago w/ only deficit being loss of peripheral vision in R eye 15:55 Transition of care: patient was not received from another setting of care. [facility] 15:55 Onset of symptoms was February 13, 2018 [facility] 15:55 Method Of Arrival: Ambulatory [facility] 15:55 Acuity: DURGA 2 [facility] 15:58 Arm band placed on Patient pt taken directly to CT by Sharla Oropeza RN [facility]
[2018-02-13 22:07] VITALS: BP 175/78; TEMP 97.5; O2SAT 95
== END 2018-02-13 19:29 | disposition home or self-care (01) ==
LOC: ER 15:36
DX: M79.18 Myalgia, other site (principal); M54.6 Pain in thoracic spine; I10 Essential (primary) hypertension; Z88.2 Allergy status to sulfonamides; Z88.5 Allergy status to narcotic agent; Z86.73 Personal history of transient ischemic attack (TIA), and cerebral infarction without residual deficits
CPT/HCPCS: 99283

== ENCOUNTER 2022-09-24 11:43 | Day surgery (SDC) | payer OTHER ==
[2022-09-24 12:22] LABS: Absolute Lymphocytes (CBC) 1.1 K/uL (0.7-4.9); Hematocrit 34.3 % (36.0-45.0); Lymphocytes % 23.5 % (15.3-44.8); MCV 96.8 fL (80-100); MPV 6.9 fL (7.6-11.3); RBC Red Blood Cell Count 3.55 M/uL (3.86-4.86)
[2022-09-24 12:28] LABS: Protime INR 0.96
[2022-09-24 12:31] LABS: Specific Gravity 1.007 (1.005-1.030); Urine Bacteria <20 /HPF (<20); Urine Bilirubin NEGATIVE (Negative); Urine Blood 3+ (OVER) (Negative); Urine Clarity Extremely Turbid (Clear); Urine Color Brown (Yellow); Urine Glucose NEGATIVE (Negative); Urine Protein 1+ (Negative); Urine RBC >50 /HPF (None Seen); Urine Urobilinogen Normal (Normal)
[2022-09-24 12:34] LABS: Potassium 3.7 mEq/L (3.5-5.1)
[2022-09-24] MEDS ORDERED: Ringers Lactate 1,000 ML IV ONE (12:34)
[2022-09-24] MEDS ORDERED: CEFAZOLIN SODIUM 1 GM/VIAL ONE (12:34)
--- NOTE | 2022-09-24 12:40 | RAD REPORT ---
EXAM DESCRIPTION: Dannyt Single View09/24/2022 12:20 pm CLINICAL HISTORY: PRE-OP. Hypertension COMPARISON: Chest Single View dated 02/07/2018; Chest Single View dated 09/24/2017; CHEST SINGLE VIEW dated 03/01/2010; CHEST SINGLE VIEW dated 02/28/2010 TECHNIQUE: Portable AP view of the chest. FINDINGS: Stable or slightly progressive left basilar airspace opacification, suggestive of atelecta sis calcified bilateral hilar lymph nodes in the right midlung nodules suggestive remote granulomatou s infection. No pneumothorax or effusion. The cardiomediastinal contours are unremarkable. IMPRESSION: No acute cardiopulmonary process. Essentially stable findings as above.
[2022-09-24] MEDS ORDERED: GEMCITABINE HCL 26.3 ML IS ONE (13:00)
[2022-09-24] MEDS ORDERED: propofoL 200 MG/20 ML VIAL IV ONE (14:46)
[2022-09-24] MEDS ORDERED: FENTANYL CITR 100 MCG/2 ML ONE (14:47)
[2022-09-24] MEDS ORDERED: LIDOCAINE 1% MPF 5 ML VIAL ONE (14:48)
[2022-09-24] MEDS ORDERED: ROCURONIUM 50 MG/5 ML VIAL IV ONE (14:49)
[2022-09-24] MEDS ORDERED: ONDANSETRON 4 MG/2 ML VIAL ONE ×2 (14:50→15:35)
[2022-09-24] MEDS ORDERED: dexAMETHasone 10 MG/ML VIAL ONE (15:35)
[2022-09-24] MEDS ORDERED: GLYCOPYRROLATE 0.2 MG/ML SYR ONE (16:15)
[2022-09-24] MEDS ORDERED: NEOSTIGMINE 1 MG/ML -10 ML VIAL ONE (16:15)
[2022-09-24] MEDS ORDERED: PHENAZOPYRIDINE 100MG TAB PO ONE ×2 (16:35→17:37)
[2022-09-24] MEDS ORDERED: CODEINE 30MG/APAP 300MG TAB PO PRN (16:35)
[2022-09-24] MEDS ORDERED: TRAMADOL 37.5mg/APAP 325mg PER TAB PO ONE (16:41)
--- NOTE | 2022-09-24 17:02 | OP ---
Surgeon: CLAY THOMAS Preoperative Diagnoses: 1.Gross hematuria. 2.Bladder tumor. Postoperative Diagnoses: 1.Gross hematuria. 2.Bladder tumor. Principal Procedures: 1.Transurethral resection of a bladder tumor. 2.Insertion of a urethral Singer catheter. 3.Intravesical instillation of gemcitabine 2 g in 50 cc normal saline chemotherapy. Findings: Right posterior wall bladder tumor approximately 1.5 cm in diameter. Indication For Procedure: Ms. Bowden presented to the Urology Clinic with gross hematuria and a hist ory of atrial fibrillation, only on baby aspirin with a Watchman in place. She underwent imaging wit h a CT urography and a cystoscopy as an outpatient revealing a posterior dome papillary urothelial ne oplasm. She was counseled that this was likely a bladder cancer/urothelial malignancy and required r esection. I recommended intravesical gemcitabine to decrease the risk of recurrence of the tumor and explained the potential side effects and risks associated with each procedure. Procedure In Detail: The patient was consented in the preoperative holding area before being transfe rred to the operative suite where general anesthesia was induced. She was given Ancef 2 g IV antimic robial prophylaxis and pneumo boots were provided for DVT prophylaxis. She was placed in the lithoto my position, padded and secured to the table appropriately. Her genitalia were prepped with Hibiclen s and draped in standard fashion. The case was begun using urethral sounds to dilate the meatus and fossa navicularis to 30 Central African. Then, using the 26-Central African bipolar resectoscope, I passed the scope v ia the urethra into her bladder with ease. The bladder was then decompressed of some cloudy and slig htly bloody urine. Because there was some clot and visible blood remaining, Ellik evacuation of that clot and blood was then performed. I then surveyed the bladder in its entirety until I identified t he posterior wall bladder tumor that was slightly to the patient's right. It was about 1.5 cm in anabel meter, and there was a slight area of mucosal change in the right lateral posterior where the tumor w as likely contacting the mucosa when the bladder was decompressed. As a result, I slightly distended her bladder, but left it less than completely full and began using the resectoscope loop to resect s uperficially the bladder tumor. Once the superficial layers of the tumor had been resected, I then r esected into the mucosa, and as expected, the bladder was incredibly thin, consistent with her age an d female gender. This resulted in complete sampling of the muscularis in areas and visible fat witho ut perforation through the perivascular adventitia. Once the tumor had been completely resected, I u sed the Ellik to remove it and send the tumor for pathologic analysis. I then again surveyed the domonique dder and ensured no residual visible tumor was present and fulgurated the entirety of the base of the tumor. Any other mucosal change nearby was also fulgurated and I ensured that all visible tumor fra gments were removed and sent for pathologic analysis. Once done, I then Ellik evacuated the bladder to remove any circulating tumor cells as best as possible before surveying the bladder with completel y decompressed to ensure no bleeding. Once no bleeding was noted, I then refilled the bladder and pl aced a 20-Central African urethral Singer catheter, which I then allowed to decompress. I then retrograde inst illed 2 g of gemcitabine in 50 cc normal saline into her bladder with ease. The catheter was clamped and connected to a leg bag for ease of subsequent contained system evacuation. The patient was then taken out of the lithotomy position, her genitalia was draped using green and blue towels, and she w as then awakened from general anesthesia. She was transferred to a stretcher, and then transferred t o the recovery room in good condition. Complications: Subtle superficial bladder perforation. Discharge Disposition: We will leave the gemcitabine for 60 minutes to minimize the risk of tumor re implantation and then decompress her bladder of the chemotherapy before switching for a new 18-Central African Singer catheter for her to take home with her. I would like for her to keep the Singer catheter for 5 to 7 days before a voiding trial may be accomplished in the Urology Clinic. During this time, I kathe l provide her with a prescription for prophylactic antimicrobial to decrease the risk of infection wi th a catheter in place. Subsequent followup should be established in about 2 weeks' time to discuss the results of the pathology and determine next steps. HERBERT/ANITAL Voice ID: [id number] Report ID: [id number]
[2022-09-24] MEDS ORDERED: oxyBUTYnin chloride 5 MG TAB ONE ×2 (17:37→19:52)
[2022-09-24] MEDS ORDERED: TRAMADOL 37.5mg/APAP 325mg PER TAB ONE (17:38)
[2022-09-24 19:30] VITALS: TEMP 97.2; O2SAT 94
[2022-09-24 19:34] VITALS: BP 147/74
--- NOTE | 2022-09-24 20:19 | EKG ---
Test Date: 2022-09-24 Test Time: 11:54:53 Certified Histologic Technician: SHERINE MEASUREMENT RESULTS: Intervals: Rate: 81 LA: QRSD: 90 QT: 382 QTc: 443 Kane: P: LA: QRS: 55 T: 66 INTERPRETIVE STATEMENTS: Atrial fibrillation Nonspecific ST abnormality, probably digitalis effect Abnormal ECG Compared to ECG 02/07/2018 08:50:37 ST (T wave) deviation now present Sinus rhythm no longer present First degree AV block no longer present Electronically Signed On 09-24-22 20:18:22 CDT by Fidencio Oreilly
[2022-09-25] MEDS ORDERED: OXYBUTYNIN ER 5 MG TAB PO SCH (09:00)
== END 2022-09-24 19:27 | disposition home or self-care (01) ==
LOC: OR 11:43
PROVIDERS: ATTEND Urology
PROC: 3E0K705 Introduction of Other Antineoplastic into Genitourinary Tract, Via Natural or Artificial Opening (ICD-10-PCS; 2022-09-24)
PROC: 0TBB8ZZ Excision of Bladder, Via Natural or Artificial Opening Endoscopic (ICD-10-PCS; principal; 2022-09-24 13:45)
DX: C67.4 Malignant neoplasm of posterior wall of bladder (principal); R31.0 Gross hematuria
CPT/HCPCS: 52234; 51720; 93005; 87088; 85025; 81001; 87086; 80048; 36415; 85610; 88307; 71045; J9201; J2704; J2710; J2001; J3010; J1100; J2405; J7120; J0690; 88305

== ENCOUNTER → 2022-10-29 | Day surgery (SDC) | payer OTHER ==
[~2022-10-29] MED LIST: DIAZEPAM 5 MG TABLET ONE; GEMCITABINE HCL 26.3 ML IS ONE; oxyBUTYnin chloride 5 MG TAB ONE
[2022-10-29 09:15] VITALS: BP 167/95; TEMP 98.8; O2SAT 97; BMI 22.8
[2022-10-29 09:20] LABS: Specific Gravity 1.012 (1.005-1.030); Urine Bacteria <20 /HPF (<20); Urine Bilirubin NEGATIVE (Negative); Urine Blood Negative (Negative); Urine Clarity Extremely Turbid (Clear); Urine Color Light-Yellow (Yellow); Urine Glucose NEGATIVE (Negative); Urine Protein NEGATIVE (Negative); Urine RBC <5 /HPF (None Seen); Urine Urobilinogen Normal (Normal)
--- NOTE | 2022-10-29 16:58 | P.OP ---
Date of Service: 10/29/22 Day surgery procedure note: Preoperative diagnosis: Postoperative diagnosis: Same Principal procedure: 1. Instillation of gemcitabine 2 g and 50 cc normal saline intravesical chemotherapy (#1 of 6) 2. 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 Procedure note: The patient was consented before being placed supine on the procedure table. Her genitalia was prepped with Betadine and draped in standard fashion before an 18 Divehi urethral Singer catheter was placed via her urethra into her bladder with ease. Clear yellow urine was obtained, and the preoperative urinalysis was unremarkable for infection. She was given a dose of Ditropan 10 mg, and once the urinalysis resulted, she was given a dose of Valium 5 mg. I then retrograde instilled 2 g of gemcitabine and 50 cc normal saline into her bladder with ease. A Madelaine clamp was applied to keep the fluid intravesical, and a leg bag was pre-attached for ease of subsequent drainage. She tolerated the instillation well and without increased symptomatology. She was allowed to rotate by one quarter turn every 15 minutes over the course of the next 60 minutes, targeting a total of 90 minutes of instillation therapy. In the end, the Madelaine clamp was removed, and the gemcitabine was evacuated into an associated leg bag before the catheter was removed along with a leg bag and discarded and chemotherapeutic waste. She tolerated the entirety of the procedure well and without complications. Discharge disposition: Follow-up in 1 week for gemcitabine intravesical instillation #2 of 6.
== END ==
LOC: DS 07:52
PROVIDERS: ATTEND Urology
PROC: 3E0K705 Introduction of Other Antineoplastic into Genitourinary Tract, Via Natural or Artificial Opening (ICD-10-PCS; principal; 2022-10-29)
DX: C67.1 Malignant neoplasm of dome of bladder (principal); I48.91 Unspecified atrial fibrillation; Z86.73 Personal history of transient ischemic attack (TIA), and cerebral infarction without residual deficits; Z79.82 Long term (current) use of aspirin
CPT/HCPCS: 81001; 96365; 51700; J9201

== ENCOUNTER 2022-12-17 07:27 | Day surgery (SDC) | payer OTHER ==
[2022-12-17] MEDS ORDERED: GEMCITABINE HCL 26.3 ML IS ONE (08:00)
[2022-12-17 08:06] VITALS: BMI 22.8
[2022-12-17] MEDS ORDERED: oxyBUTYnin chloride 5 MG TAB ONE (08:43)
[2022-12-17 08:50] LABS: Specific Gravity 1.012 (1.005-1.030); Urine Bacteria None Seen /HPF (<20); Urine Bilirubin NEGATIVE (Negative); Urine Blood Negative (Negative); Urine Clarity Turbid (Clear); Urine Color Light-Yellow (Yellow); Urine Glucose NEGATIVE (Negative); Urine Mucus Slight /HPF (None Seen); Urine Protein TRACE (Negative); Urine RBC <5 /HPF (None Seen); Urine Urobilinogen Normal (Normal)
[2022-12-17 08:55] VITALS: BP 163/83; TEMP 96.9; O2SAT 98
[2022-12-17] MEDS ORDERED: DIAZEPAM 5 MG TABLET ONE (09:14)
== END 2022-12-17 13:45 | disposition home or self-care (01) ==
LOC: DS 07:27
PROVIDERS: ATTEND Urology
PROC: 3E0K705 Introduction of Other Antineoplastic into Genitourinary Tract, Via Natural or Artificial Opening (ICD-10-PCS; principal; 2022-12-17)
DX: C67.1 Malignant neoplasm of dome of bladder (principal); Z88.2 Allergy status to sulfonamides; Z88.6 Allergy status to analgesic agent; Z88.1 Allergy status to other antibiotic agents
CPT/HCPCS: 81001; 96365; 96366; 51720; J9201 ×2

== ENCOUNTER 2023-01-28 07:25 | Day surgery (SDC) | payer OTHER ==
[2023-01-13 16:26] LABS: Absolute Lymphocytes (CBC) 1.1 K/uL (0.7-4.9); Hematocrit 32.9 % (36.0-45.0); Lymphocytes % 21.6 % (15.3-44.8); MCV 96.1 fL (80-100); MPV 7.3 fL (7.6-11.3); Platelets 177 thou/uL (152-406); RBC Red Blood Cell Count 3.43 M/uL (3.86-4.86)
[2023-01-13 16:32] LABS: Potassium 3.6 mEq/L (3.5-5.1); Protime INR 1.11
[2023-01-13 20:56] LABS: Anisocytosis 1+; Blood Morphology Comment NOTED (NOT SEEN); Platelet Estimate ADEQ; Poikilocytosis 1+; White Blood Cell Scan OK (OK)
[2023-01-28] MEDS ORDERED: Ringers Lactate 1,000 ML IV ONE (07:56)
[2023-01-28] MEDS ORDERED: CEFAZOLIN SODIUM 1 GM/VIAL ONE (09:18)
--- NOTE | 2023-01-28 10:44 | OP ---
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 2.Status post transurethral resection of bladder tumor. 3.Status post intravesical gemcitabine induction course. 4.Bladder lesion. 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 2.Status post transurethral resection of bladder tumor. 3.Status post intravesical gemcitabine induction course. 4.Bladder lesion. Principal Procedure: Cystoscopy with bladder biopsies and fulguration. Findings: Erythematous irregular mucosa in the posterior dome of the bladder approximately 0.5 cm in diameter in 2 locations. Indication For Procedure: Ms. Bowden presented to the Urology Clinic with gross hematuria and was fo und to have a large papillary urothelial neoplasm within her bladder. This was resected and she rece ived adjuvant gemcitabine intravesical chemotherapy followed by an induction course, which she comple khushboo successfully. Subsequent followup cystoscopy revealed the absence of any papillary urothelial ne oplasms, but 2 areas of slightly erythematous mucosa in the posterior dome that were somewhat irregul ar. Given the potential for development of CIS, the patient was recommended for bladder biopsies. Procedure In Detail: The patient was consented in the preoperative holding area before being transfe rred to the operative suite where general anesthesia was induced. She was given Ancef 2 g IV antimic robial prophylaxis, and pneumo boots were provided for DVT prophylaxis. She was placed in the lithot maggi position, padded and secured to the table appropriately. Her genitalia were prepped with Hibicle ns and she was draped in standard fashion. The case was begun using a 22-Wolof rigid cystoscope to traverse the urethra and into the bladder with ease. The bladder was decompressed of fluid and urine and then surveyed in its entirety. As previously noted, in the posterior dome of the bladder were 2 slightly irregular patches of mucosa that were somewhat erythematous. As a result, I targeted the f irst patch, which appeared to be region separate from any prior resection site scar. Two biopsies we re taken from that area to ensure adequate mucosal and submucosal as well as muscular sampling. Thes e were sent for pathologic analysis. I then sampled the other erythematous region, which did appear to be potentially the region of prior resection site scar and similarly sent this for pathologic anal ysis with the other sample as bladder biopsy posterior dome. I then fulgurated the area of each biop sy site using a Bugbee electrode at a cautery setting of 30, and once completely hemostatic with the bladder decompressed, the scope was removed and she was taken out of the lithotomy position. She was then awakened from general anesthesia, transferred to a stretcher, and then transferred to the [facility] room in good condition. Complications: None. Discharge Disposition: A follow up should be established to discuss the results of the pathology and determine any next steps in management. If pathology is negative, subsequent followup cystoscopy wi ll be required in 3 months. HERBERT/ZEB Voice ID: [id number] Report ID: [id number]
[2023-01-28 12:32] VITALS: O2SAT 94
[2023-01-28 12:35] VITALS: BP 140/80; TEMP 97
== END 2023-01-28 11:18 | disposition home or self-care (01) ==
LOC: OR 07:25
PROVIDERS: ATTEND Urology
PROC: 0TBB8ZX Excision of Bladder, Via Natural or Artificial Opening Endoscopic, Diagnostic (ICD-10-PCS; principal; 2023-01-28 08:45)
DX: N32.9 Bladder disorder, unspecified (principal); C67.1 Malignant neoplasm of dome of bladder; I48.91 Unspecified atrial fibrillation; Z86.73 Personal history of transient ischemic attack (TIA), and cerebral infarction without residual deficits; Z87.891 Personal history of nicotine dependence; Z88.5 Allergy status to narcotic agent; Z88.2 Allergy status to sulfonamides; Z88.8 Allergy status to other drugs, medicaments and biological substances
CPT/HCPCS: 87088; 85025; 87086; 80048; 36415; 85610; 88305; 52204; J7120; J0690

== ENCOUNTER 2023-08-16 21:18 | Emergency (ER) | payer OTHER ==
--- NOTE | 2023-08-16 22:03 | ER ---
Nurse's Notes [facility] Name: Arelis Bowden Age: 88 yrs Sex: Female : 1935 Arrival Date: 08/16/2023 Time: 21:18 Bed 6 Private MD: Diagnosis: Epistaxis;Right anterior epistaxis, recurrent Presentation: 08/15 21:31 Chief complaint: Patient states: RIGHT SIDED NOSE BLEED ONSET 1HR [employer]. PT STATES THAT cm10 SHE WAS WATCHING TV WHEN IT BEGAN. Coronavirus screen: Client denies travel out of the [place] in the last 14 days. At this time, the client does not indicate any symptoms associated with coronavirus-19. Ebola Screen: Patient denies travel to an Ebola-affected area in the 21 days before illness onset. No symptoms or risks identified at this time. Initial Sepsis Screen: Does the patient meet any 2 criteria? No. Patient's initial sepsis screen is negative. Does the patient have a suspected source of infection? No. Patient's initial sepsis screen is negative. Risk Assessment: Do you want to hurt yourself or someone else? Patient reports no desire to harm self or others. Onset of symptoms was August 16, 2023. 21:31 Method Of Arrival: Wheelchair cm10 21:31 Acuity: DURGA 4 cm10 Triage Assessment: 21:33 General: Appears in no apparent distress. comfortable, Behavior is calm, cooperative. cm10 Pain: Denies pain. EENT: Reports NOSE BLEED. BLEEDING CONTROLLED AT THIS TIME. Neuro: No deficits noted. Level of Consciousness is awake, alert, obeys commands, Oriented to person, place, time, situation, Appropriate for age. Respiratory: No deficits noted. Airway is patent Respiratory effort is even, unlabored, Respiratory pattern is regular, symmetrical. Derm: No deficits noted. Skin is healthy with good turgor, Skin is pink, warm \T\ dry. Musculoskeletal: No deficits noted. Range of motion: intact in all extremities. Historical: - Allergies: 21:32 Codeine; cm10 21:32 Sulfa (Sulfonamide Antibiotics); cm10 21:32 Quinine Sulfate; cm10 21:32 Alteplase; cm10 21:32 Cbhhxqh-IVP-CsB Reductase Inhibitors; cm10 - PMHx: 21:32 CVA; Hypertension; cm10 - Immunization history:: Adult Immunizations up to date. - Infectious Disease History:: Denies. - Social history:: Smoking status: Patient denies any tobacco usage or history of. - Family history:: not pertinent. Screenin:34 [facility] ED Fall Risk Assessment (Adult) History of falling in the last 3 months, cm10 including since admission No falls in past 3 months (0 pts) Confusion or Disorientation No (0 pts) Intoxicated or Sedated No (0 pts) Impaired Gait No (0 pts) Mobility Assist Device Used No (0 pt) Altered Elimination No (0 pt) Score/Fall Risk Level 0 - 2 = Low Risk Oriented to surroundings, Maintained a safe environment, Hourly rounding (assess needs \T\ fall precautionary measures) done. Abuse screen: Denies threats or abuse. Denies injuries from another. Nutritional screening: No deficits noted. Tuberculosis screening: No symptoms or risk factors identified. Assessment: 21:56 Reassessment: Patient appears in no apparent distress at this time. No changes from cm10 previously documented assessment. Patient and/or family updated on plan of care and expected duration. Pain level reassessed. Patient is alert, oriented x 3, equal unlabored respirations, skin warm/dry/pink. Patient states symptoms have improved. Vital Signs: 21:31 BP 189 / 101; Pulse 83; Resp 18; Temp 96.5; Pulse Ox 94% on R/A; Weight 63.5 kg; Height cm10 5 ft. 6 in. ; Pain 0/10; 21:57 BP 154 / 85; Pulse 70; Resp 18; Pulse Ox 94% on R/A; km8 21:31 Body Mass Index 22.60 (63.50 kg, 167.64 cm) cm10 21:31 Pain Scale: Adult cm10 Roddy Coma Score: 08/16 02:51 Eye Response: spontaneous(4). Motor Response: obeys commands(6). Verbal Response: sp4 oriented(5). Total: 15. ED Course: 08/15 21:24 Patient arrived in ED. cm10 21:27 Oleksandr Blanton MD is Attending Physician. sp4 21:32 Triage completed. cm10 21:34 Arm band placed on Patient placed in an exam room, on a stretcher. cm10 21:35 Patient has correct armband on for positive identification. Bed in low position. Call cm10 light in reach. Side rails up X 1. Provided Education on: ER PROCESS AND PROCEDURES. Pulse ox on. NIBP on. 21:35 No provider procedures requiring assistance completed. cm10 21:56 Sonja Umanzor, RN is Primary Nurse. cm10 21:59 Monet Caban MD is Referral Physician. sp4 22:07 Patient did not have IV access during this emergency room visit. cm10 Administered Medications: No medications were administered Medication: 21:34 VIS not applicable for this client. cm10 Outcome: 22:02 Discharge ordered by . sp4 22:06 Discharged to home ambulatory, with family, cm10 22:06 Condition: good 22:06 Discharge instructions given to patient, Instructed on discharge instructions, follow up and referral plans. Demonstrated understanding of instructions, follow-up care, 22:07 Patient left the ED. cm10 Signatures: Oleksandr Blanton MD MD sp4 Sonja Umanzor, RN RN cm10 Dalila Ballard RN RN km8
--- NOTE | 2023-08-16 22:03 | EDPHYS ---
Physician Documentation [facility] Name: Arelis Bowden Age: 88 yrs Sex: Female : 1935 Arrival Date: 08/16/2023 Time: 21:18 Bed 6 Private MD: ED Physician Oleksandr Blanton HPI: 08/15 21:27 This 88 yrs old Female presents to ER via Unassigned with complaints of Nose sp4 Bleed. 08/16 02:51 Very pleasant 88-year-old female presents with complaint of bleeding from the right sp4 nostril at home. Bleeding has subsided prior to arrival.. Historical: - Allergies: 08/15 21:32 Codeine; cm10 21:32 Sulfa (Sulfonamide Antibiotics); cm10 21:32 Quinine Sulfate; cm10 21:32 Alteplase; cm10 21:32 Nxknujf-VAN-BtA Reductase Inhibitors; cm10 - PMHx: 21:32 CVA; Hypertension; cm10 - Immunization history:: Adult Immunizations up to date. - Infectious Disease History:: Denies. - Social history:: Smoking status: Patient denies any tobacco usage or history of. - Family history:: not pertinent. ROS: 08/16 02:51 Constitutional: Negative for fever, chills, and weight loss, positive right nasal sp4 bleed All other systems are negative, Exam: 02:51 Constitutional: This is a well developed, well nourished patient who is awake, alert, sp4 and in no acute distress. Head/Face: Normocephalic, atraumatic. Eyes: Pupils equal round and reactive to light, extra-ocular motions intact. Lids and lashes normal. Conjunctiva and sclera are not injected. Cornea within normal limits. Periorbital areas with no swelling, redness, or edema. ENT: Nares patent. No nasal discharge, no septal abnormalities noted. Tympanic membranes are normal and external auditory canals are clear. Oropharynx with no redness, swelling, or masses, exudates, or evidence of obstruction, uvula midline. Mucous membranes moist. Small amount of dried blood in the right nostril. Neck: Trachea midline, no thyromegaly or masses palpated, and no cervical lymphadenopathy. Supple, full range of motion without nuchal rigidity, or vertebral point tenderness. Chest/axilla: Normal chest wall appearance and motion. Nontender with no deformity. No lesions are appreciated. Cardiovascular: Regular rate and rhythm with a normal S1 and S2. No gallops, murmurs, or rubs. Normal PMI, no JVD. No pulse deficits. Respiratory: Lungs have equal breath sounds bilaterally, clear to auscultation and percussion. No rales, rhonchi or wheezes noted. No increased work of breathing, no retractions or nasal flaring. Abdomen/GI: Soft, with normal bowel sounds. No distension or tympany. No guarding or rebound. No evidence of tenderness throughout. Back: No spinal tenderness. No costovertebral tenderness. Skin: Warm, dry with normal turgor. Normal color with no rashes, no lesions, and no evidence of cellulitis. MS/ Extremity: Pulses equal, no cyanosis. Neurovascular intact. Full, normal range of motion. Neuro: Awake and alert, GCS 15, oriented to person, place, time, and situation. Cranial nerves II-XII grossly intact. Motor strength 5/5 in all extremities. Sensory grossly intact. Psych: Awake, alert, with orientation to person, place and time. Behavior, mood, and affect are within normal limits Vital Signs: 08/15 21:31 BP 189 / 101; Pulse 83; Resp 18; Temp 96.5; Pulse Ox 94% on R/A; Weight 63.5 kg; Height cm10 5 ft. 6 in. ; Pain 0/10; 21:57 BP 154 / 85; Pulse 70; Resp 18; Pulse Ox 94% on R/A; km8 21:31 Body Mass Index 22.60 (63.50 kg, 167.64 cm) cm10 21:31 Pain Scale: Adult cm10 [place] Coma Score: 08/16 02:51 Eye Response: spontaneous(4). Motor Response: obeys commands(6). Verbal Response: sp4 oriented(5). Total: 15. MDM: 08/15 21:39 Patient medically screened. sp4 08/16 02:51 Differential diagnosis: nasal fracture, sinusitis, epistaxis r/t trauma, spontaneous sp4 epistaxis. Data reviewed: vital signs, nurses notes. ED course: Patient did not manifest with any more nosebleed in the ER. Patient stable for discharge home without nasal packing. Advised to follow-up with ENT doctor Dr. Caban. . Administered Medications: No medications were administered Disposition Summary: 08/16/23 22:02 Discharge Ordered Problem: new sp4 Symptoms: have improved sp4 Condition: Stable sp4 Diagnosis - Epistaxis sp4 - Right anterior epistaxis, recurrent sp4 Followup: sp4 - With: Monet Caban MD - When: 7 - 10 days - Reason: Recheck today's complaints Discharge Instructions: - Discharge Summary Sheet sp4 - Nosebleed, Adult, [place] sp4 Forms: - Patient Portal Instructions sp4 Signatures: Oleksandr Blanton MD MD sp4 Sonja Umanzor RN RN cm10
[2023-08-16 22:30] VITALS: BP 154/85; TEMP 96.5; O2SAT 94
== END 2023-08-16 22:07 | disposition home or self-care (01) ==
LOC: ER 21:18
DX: R04.0 Epistaxis (principal)
CPT/HCPCS: 99283

== ENCOUNTER 2025-01-11 09:12 | Emergency (ER) | payer OTHER ==
--- NOTE | 2025-01-11 11:41 | RAD REPORT ---
EXAMINATION: CT Abdomen Pelvis Wo Contrast CLINICAL INDICATION: Female, 89 years old. CONSTIPATION TECHNIQUE: CT abdomen and pelvis was performed, without IV contrast, as per department protocol. Axia l, sagittal and coronal reconstructions were obtained. One or more of the following dose reduction techniques were used: Automated exposure control, adjustment of the mA and kV according to the patien t size, and iterative reconstruction. Unless otherwise specified, incidental findings do not require dedicated imaging follow-up. COMPARISON: 04/05/2024 FINDINGS: The lack of intravenous contrast limits the sensitivity of this exam for evaluation of solid visceral organs, vascular structures, and retroperitoneum. LOWER CHEST: Stable moderate cardiomegaly. Platelike atelectatic changes bilaterally, stable LIVER: Normal in size and contour. No focal lesion. BILIARY SYSTEM: No suspicious abnormalities. SPLEEN: Normal size. No focal lesion. Numerous calcific foci within the liver and spleen parenchyma are stable may suggest sequelae of celia te granulomatous infection. PANCREAS: No mass, ductal dilation, or jaime-pancreatic fluid. ADRENALS: Normal; no mass. KIDNEYS AND URETERS: Normal size and contour. Multiple bilateral renal cysts including a transcortica l right mid to lower pole 2.6 cm cyst with tiny calcific component, grossly stable. No hydronephrosis. URINARY BLADDER: Normal contour. GASTROINTESTINAL TRACT: No evidence of bowel obstruction, significant free fluid, free air or abscess . Distal colon reticulosis acute diverticulitis. APPENDIX: Normal appendix. LYMPH NODES: No lymphadenopathy. MUSCULOSKELETAL: Superior endplate compression deformity at L4 with grade 1 anterolisthesis of L4 ove r L5. Stability suggests chronic nature. ADDITIONAL FINDINGS: Right inguinal hernia containing fluid.. IMPRESSION: No acute or concerning abnormalities in the abdomen or pelvis, with evaluation limited by lack of IV contrast. Stable incidental findings as above.
--- NOTE | 2025-01-11 11:47 | ER ---
Nurse's Notes [facility] Name: Arelis Bowden Age: 89 yrs Sex: Female : 1935 Arrival Date: 01/11/2025 Time: 09:12 Bed IW2 Private MD: Diagnosis: Constipation Presentation: 01/11 10:08 Chief complaint: Patient states: she has been constipated and hasn't had a good bowel ap3 movement for "quite some time". patient denies any abdominal pain, but reports feeling a "knot" in her abdomen. patient denies any nausea or vomiting at this time. Coronavirus screen: At this time, the client does not indicate any symptoms associated with coronavirus-19. Ebola Screen: No symptoms or risks identified at this time. Initial Sepsis Screen: Does the patient meet any 2 criteria? No. Patient's initial sepsis screen is negative. Does the patient have a suspected source of infection? No. Patient's initial sepsis screen is negative. Risk Assessment: Do you want to hurt yourself or someone else? Patient reports no desire to harm self or others. Onset of symptoms is unknown. 10:08 Method Of Arrival: Ambulatory ap3 10:08 Acuity: DURGA 3 ap3 Triage Assessment: 10:10 General: Appears in no apparent distress. Behavior is calm, cooperative, appropriate ap3 for age. Pain: Denies pain. Neuro: Level of Consciousness is awake, alert, obeys commands, Oriented to person, place, time, situation, Appropriate for age. Cardiovascular: Patient's skin is warm and dry. Respiratory: Airway is patent Respiratory effort is even, unlabored, Respiratory pattern is regular, symmetrical. GI: Reports constipation. Historical: - Allergies: 10:09 Alteplase; ap3 10:09 Codeine; ap3 10:09 Quinine Sulfate; ap3 10:09 Atpiiqa-Ioe-Tcs Reductase Inhibitors; ap3 10:09 Sulfa (Sulfonamide Antibiotics); ap3 - PMHx: 10:09 CVA; Hypertension; ap3 10:11 Aneurysm; ap3 - Immunization history:: Adult Immunizations up to date. - Infectious Disease History:: Denies. - Social history:: Smoking status: Patient denies any tobacco usage or history of. Screenin:10 [facility] ED Fall Risk Assessment (Adult) History of falling in the last 3 months, ap3 including since admission No falls in past 3 months (0 pts) Confusion or Disorientation No (0 pts) Intoxicated or Sedated No (0 pts) Impaired Gait No (0 pts) Mobility Assist Device Used No (0 pt) Altered Elimination No (0 pt) Score/Fall Risk Level 0 - 2 = Low Risk Oriented to surroundings, Maintained a safe environment, Educated pt \\T\\ family on fall prevention, incl call for assistance when getting out of bed, Assessed \\T\\ reinforced patient's understanding of fall precautions, Hourly rounding (assess needs \\T\\ fall precautionary measures) done, Used ambulatory aids as needed (educated on \\T\\ assisted with). Abuse screen: Denies threats or abuse. Nutritional screening: No deficits noted. Tuberculosis screening: No symptoms or risk factors identified. Vital Signs: 10:08 BP 170 / 90; Pulse 80; Resp 17; Temp 97.8; Pulse Ox 92% ; Weight 63.5 kg; Height 5 ft. ap3 6 in. ; 12:17 BP 140 / 94; Pulse 74; Resp 17; Temp 97; Pulse Ox 95% ; jl7 10:08 Body Mass Index 22.60 (63.50 kg, 167.64 cm) ap3 ED Course: 09:18 Patient arrived in ED. cj3 09:23 Kelly Burton PA-C is PHCP. sb4 09:23 Aristides Campbell DO is Attending Physician. sb4 10:09 Triage completed. ap3 10:11 Arm band placed on left wrist. ap3 10:35 CT Abd/Pelvis - Without Contrast In Process Unspecified. EDMS 12:18 No provider procedures requiring assistance completed. Patient did not have IV access jl7 during this emergency room visit. Administered Medications: 12:17 Drug: Lactulose PO 20 grams 30 ml PO once Volume: 30 ml; Route: PO; jl7 12:17 Follow up: Response: Medication administered at discharge. jl7 Outcome: 11:46 Discharge ordered by . sb4 12:18 Discharged to home ambulatory, jl7 12:18 Condition: stable 12:18 Discharge instructions given to patient, Instructed on discharge instructions, follow up and referral plans. medication usage, Demonstrated understanding of instructions, follow-up care, medications, Prescriptions given X 1, 12:18 Patient left the ED. jl7 Signatures: Dispatcher [employer] EDMS Little, Jahala, RN RN jl7 Helga Chambers RN RN ap3 Kelly Burton, LAXMI PAMartha sb4 Michelle Tellez 3
--- NOTE | 2025-01-11 11:47 | EDPHYS ---
Physician Documentation [facility] Name: Arelis Bowden Age: 89 yrs Sex: Female : 1935 Arrival Date: 01/11/2025 Time: 09:12 Bed IW2 Private MD: ED Physician Aristides Campbell HPI: 01/11 10:09 This 89 yrs old Female presents to ER via Ambulatory with complaints of Constipation. sb4 10:09 Patient states that she has not had a bowel movement in a very long time, is not sure sb4 how long exactly. States that she takes stool softeners and MiraLAX and magnesium citrate without relief in symptoms. States that she has only been able to go very small amounts. Denies any abdominal pain, nausea, or vomiting. Historical: - Allergies: 10:09 Alteplase; ap3 10:09 Codeine; ap3 10:09 Quinine Sulfate; ap3 10:09 Eycaoyf-Vyk-Ktg Reductase Inhibitors; ap3 10:09 Sulfa (Sulfonamide Antibiotics); ap3 - PMHx: 10:09 CVA; Hypertension; ap3 10:11 Aneurysm; ap3 - Immunization history:: Adult Immunizations up to date. - Infectious Disease History:: Denies. - Social history:: Smoking status: Patient denies any tobacco usage or history of. ROS: 10:09 Constitutional: Negative for fever, chills, and weight loss, sb4 10:09 Abdomen/GI: Positive for constipation, 10:09 All other systems are negative, Exam: 10:09 Constitutional: This is a well developed, well nourished patient who is awake, alert, sb4 and in no acute distress. Head/Face: Normocephalic, atraumatic. Eyes: Extra-ocular motions intact. Periorbital areas with no swelling, redness, or edema. ENT: Mucous membranes moist. Cardiovascular: Regular rate and rhythm with a normal S1 and S2. Respiratory: No increased work of breathing, no retractions or nasal flaring. Abdomen/GI: Soft, non-tender, no distension. Skin: Warm, dry with normal turgor. Normal color with no rashes, no lesions, and no evidence of cellulitis. Vital Signs: 10:08 BP 170 / 90; Pulse 80; Resp 17; Temp 97.8; Pulse Ox 92% ; Weight 63.5 kg; Height 5 ft. ap3 6 in. ; 12:17 BP 140 / 94; Pulse 74; Resp 17; Temp 97; Pulse Ox 95% ; jl7 10:08 Body Mass Index 22.60 (63.50 kg, 167.64 cm) ap3 MDM: 09:24 Medical Screening Exam initiated sb4 10:09 Differential diagnosis: constipation, stercoral colitis, fecal impaction, SBO, ileus. sb4 11:45 Data reviewed: vital signs, nurses notes, radiologic studies, and as a result, I will sb4 discharge patient. Care significantly affected by the following chronic conditions: Hypertension. Counseling: I had a detailed discussion with the patient and/or guardian regarding the historical points, exam findings, and any diagnostic results supporting the discharge/admit diagnosis, radiology results, the need for outpatient follow up, for definitive care, to return to the emergency department if symptoms worsen or persist or if there are any questions or concerns that arise at home. 12:15 Test considered but Not performed: Labs: not indicated, no n/v/d, tolerating PO, has no sb4 complaints other than constipation. Special discussion: I discussed with the patient/guardian in detail that at this point there is no indication for admission to the hospital. It is understood, however, that if the symptoms persist or worsen the patient needs to return immediately for re-evaluation. 01/11 10:09 Order name: CT Abd/Pelvis - Without Contrast; Complete Time: 11:42 sb4 Administered Medications: 12:17 Drug: Lactulose PO 20 grams 30 ml PO once Volume: 30 ml; Route: PO; jl7 12:17 Follow up: Response: Medication administered at discharge. jl7 Disposition: 18:23 I was immediately available on-site in the Emergency Department for consultation in the ms3 care of the patient. Disposition Summary: 01/11/25 11:46 Discharge Ordered Notes: Location: Home sb4 Problem: an ongoing problem sb4 Symptoms: are unchanged sb4 Condition: Stable sb4 Diagnosis - Constipation sb4 Followup: sb4 - With: Private Physician - When: As needed - Reason: Recheck today's complaints, Re-evaluation by your physician Discharge Instructions: - Discharge Summary Sheet sb4 - Constipation, Adult, Espz-ip-Khui sb4 Forms: - Patient Portal Instructions sb4 - Leadership Thank You Letter sb4 Prescriptions: - Lactulose 10 gram/15 mL Oral Solution - take 30 milliliters ORAL route once daily; 300 milliliter; Refills: 0, Product sb4 Selection Permitted Signatures: Dispatcher [employer] Earline Cook, RN RN jl7 Helga Chambers RN RN ap3 Aristides Campbell, DO ms3 Kelly Burton PA-C PA-C sb4 Corrections: (The following items were deleted from the chart) 10:10 10:10 Abdomen Pelvis Wo Con+CT.RAD.BRZ ordered. EDMS EDMS
[2025-01-11] MEDS ORDERED: LACTULOSE 20 GM/30 ML UCUP ONE (12:12)
[2025-01-11 14:46] VITALS: BP 140/94; TEMP 97; O2SAT 95
== END 2025-01-11 12:18 | disposition home or self-care (01) ==
LOC: ER 09:12
DX: K59.00 Constipation, unspecified (principal)
CPT/HCPCS: 74176; 99283